=== PATIENT | female | born 1985 | race Caucasian/White ===

== ENCOUNTER 2016-09-16 12:39 | Outpatient (CLI) | payer MEDICAID | END 2016-09-16 12:40 | disposition home or self-care (01) | DX: R10.9 Unspecified abdominal pain (principal) ==

== ENCOUNTER 2016-09-17 16:01 | Emergency (ER) | payer MEDICAID ==
[2016-09-17 16:49] LABS: BILIRUBIN,URINE NEGATIVE (NEGATIVE)
[2016-09-17 16:54] LABS: HCG UR QUAL NEGATIVE; UA CHARGE (STRIP ONLY) YES; UR CULTURE IF IND NOT INDICATED
[2016-09-17] MEDS ORDERED: HYDROmorphone 1 MG/ML SYRINGE ONE ×2 (17:04→19:03)
[2016-09-17] MEDS: SODIUM CHLORIDE 0.9% 1,000 ML IV ONE (17:10)
[2016-09-17] MEDS: HYDROmorphone 1 MG/ML SYRINGE IVP STA ×2 (17:15→19:12)
[2016-09-17 17:29] LABS: BASOPHILS % (AUTO) 0.7 %; EOSINOPHILS % (AUTO) 0.5 %; HCT - HEMATOCRIT 39.7 % (37.0-47.0); HGB - HEMOGLOBIN 13.3 g/dL (12.0-16.0); LYMPHOCYTES # (AUTO) 1.6 10^3/uL (1.5-3.5); LYMPHOCYTES % (AUTO) 24.4 %; MEAN CORPUSCULAR HEMOGLOBIN 30.3 pg (27.0-31.0); MEAN CORPUSCULAR HGB CONC 33.4 g/dL (32.0-36.0); MEAN CORPUSCULAR VOLUME 90.5 fL (81.0-99.0); MONOCYTES # (AUTO) 0.4 10^3/uL (0.0-1.0); MONOCYTES % (AUTO) 6.1 %; NEUTROPHILS # (AUTO) 4.5 10^3/uL (1.5-6.6); NEUTROPHILS % (AUTO) 68.3 %; RED BLOOD COUNT 4.39 10^6/uL (4.20-5.40); RED CELL DISTRIBUTION WIDTH 12.7 % (12.0-15.0); UNCORRECTED WHITE BLOOD COUNT 6.5 x10^3/uL; WHITE BLOOD COUNT 6.5 x10^3/uL (4.8-10.8)
[2016-09-17 17:42] LABS: ALBUMIN/GLOBULIN RATIO 1.8 (1.0-2.2); BILIRUBIN,TOTAL 0.5 mg/dL (0.2-1.0); CALCIUM 9.8 mg/dL (8.5-10.3); CREATININE 0.6 mg/dL (0.4-1.0); POTASSIUM 3.5 mmol/L (3.5-5.0)
--- NOTE | 2016-09-17 17:47 | ED Physician Documentation ---
History of Present Illness - Stated complaint Stated Complaint: RT SIDE PX - Chief complaint Chief Complaint: Abd Pain - Additonal information Additional information: hx from pt 31 y/o f known gallstones inc rqu pain recently - more freq, more severe, longer duration some light stools and dark urine now severe and persistent pain after a milkshake no fever Review of Systems Constitutional: denies: Fever, Chills Cardiac: denies: Chest pain / pressure Respiratory: denies: Dyspnea, Cough GI: reports: Abdominal Pain. denies: Nausea, Vomiting, Diarrhea : reports: Hysterectomy Musculoskeletal: denies: Back pain Endocrine: denies: Easy bruising / bleeding Immunocompromised: denies: Immunocompromised PD PAST MEDICAL HISTORY - Past Medical History Respiratory: None NAVAL ENGINEER: Endometriosis HEENT: None - Past Surgical History Past Surgical History: Yes /NAVAL ENGINEER: Hysterectomy - Present Medications Home Medications: Ambulatory Orders Medication Instructions Recorded Confirmed Hydrocodone/Acetaminophen [[place] 1 each PO Q6H PRN #15 tablet 12/10/15 5-325 Tablet] metroNIDAZOLE [Flagyl] 250 mg PO TID #20 tablet 12/10/15 Amoxicillin 500 mg PO TID #20 capsule 02/02/16 Fluticasone [Flonase] 1 sprays SHEKHAR BID #1 bottle 02/02/16 Hydrocodone/Acetaminophen [[place] 1 each PO Q6H PRN #15 tablet 02/02/16 5-325 Tablet] Dicyclomine [Bentyl] 10 mg PO Q8H PRN #20 capsule 09/17/16 - Allergies Allergies/Adverse Reactions: Allergies Allergy/AdvReac Type Severity Reaction Status Date / Time Latex, Natural Rubber Allergy Unknown Verified 01/06/16 23:17 venom-honey bee Allergy Anaphylaxis Verified 01/06/16 23:17 [bee venom (honey bee)] - Social History Does the pt smoke?: No Smoking Status: Never smoker Does the pt drink ETOH?: No Does the pt have substance abuse?: No - Immunizations Immunizations are current?: Yes - POLST Patient has POLST: No PD ED PE NORMAL - Vitals Vital signs reviewed: Yes - General General: Alert and oriented X 3 - Cardiac Cardiac: RRR - Respiratory Respiratory: No respiratory distress, Clear bilaterally - Abdomen Abdomen: Soft, Other (TTP RUQ with + murphys) - Back Back: No CVA TTP - Derm Derm: Normal color - Neuro Neuro: Alert and oriented X 3 Results - Vitals Vitals: Vital Signs - 24 hr 09/17/16 09/17/16 09/17/16 16:20 18:22 19:13 Temperature 36.8 C 36.7 C Heart Rate 92 77 90 Respiratory 16 15 16 Rate Blood Pressure 126/80 101/64 121/83 H O2 Saturation 100 100 100 09/17/16 20:15 Temperature Heart Rate 68 Respiratory 17 Rate Blood Pressure 102/67 O2 Saturation 99 Oxygen O2 Source Room air - Labs Labs: Laboratory Tests 09/17/16 09/17/16 09/17/16 16:35 17:10 17:10 WBC 6.5 RBC 4.39 Hgb 13.3 Hct 39.7 MCV 90.5 MCH 30.3 MCHC 33.4 RDW 12.7 Plt Count 227 MPV 9.0 Neut # 4.5 Lymph # 1.6 [place] # 0.4 Eos # 0.0 Baso # 0.0 Absolute Nucleated RBC 0.00 Nucleated RBCs 0.0 Sodium 143 Potassium 3.5 Chloride 105 Carbon Dioxide 30 Anion Gap 8.0 BUN 9 Creatinine 0.6 Estimated GFR (MDRD) 118 Glucose 99 Calcium 9.8 Total Bilirubin 0.5 AST 36 ALT 38 Alkaline Phosphatase 55 Total Protein 8.0 Albumin 5.1 Globulin 2.9 Albumin/Globulin Ratio 1.8 Lipase 20 L Urine Color STRAW Urine Clarity CLEAR Urine pH 6.0 Ur Specific [place] <=1.005 Urine Protein NEGATIVE Urine Glucose (UA) NEGATIVE Urine Ketones NEGATIVE Urine Occult Blood NEGATIVE Urine Nitrite NEGATIVE Urine Bilirubin NEGATIVE Urine Urobilinogen 0.2 (NORMAL) Ur Leukocyte Esterase NEGATIVE Ur Microscopic Review NOT INDICATED Urine Culture Comments NOT INDICATED Urine HCG, Qual NEGATIVE - Rads (name of study) ruq sono Radiology: See rad report (no stones, nl GB, nl ducts) CT abd pelvis Radiology: See rad report (neg) PD MEDICAL DECISION MAKING - ED course ED course: nl labs neg ruq sono pain is worse will CT CT neg too will reassure and dc Departure - Departure Disposition: 01 Home, Self Care Clinical Impression: Abdominal pain Qualifiers: Abdominal location: right upper quadrant Qualified Code(s): R10.11 - Right upper quadrant pain Instructions: ED Abdominal Pain Unkn Cause Prescriptions: Dicyclomine [Bentyl] 10 mg PO Q8H PRN #20 capsule PRN Reason: stomach cramps Comments: All of the tests today came back fine. The urine showed no infection or blood to suggest a kidney stone The blood work including kidney liver and pancreas function was fine. The ultrasound did not show any gallstones The CT scan did not show any gallstones or kidney stones, no pancreatitis, no aneurysm, no bowel infection/perforation/obstruction, no internal bleeding or free fluid, normal size ovaries I am not sure what is causing the pain But given the extensive and reassuring workup, I do not think you need surgery or admission or antibiotics. I think it is safe for you to go home and to get any further work up as an outpatient It is very possible that over time, new or changing symptoms may develop that lead to a diagnosis not presently apparent. That is why close follow up with your PMD for a recheck is very important I would suggest you and your PMD consider a test called a HIDA scan to evaluate the gallbladder function - that test is not available tonight through the ER Recommend a low fat diet. You can try a medication called bentyl to ease the pains. I do not recommend any strong pain killers because I do not want to mask changing or worsening symptoms Forms: Activity restrictions
--- NOTE | 2016-09-17 18:34 | Ultrasound Preliminary Report ---
Exam: US Abdomen Limited IMPRESSION: Normal. No cholelithiasis or cholecystitis. [facility] SITE ID: [id number]
--- NOTE | 2016-09-17 18:36 | Ultrasound Report ---
EXAM: ABDOMEN ULTRASOUND LIMITED, RUQ EXAM DATE: 09/17/2016 05:47 PM. CLINICAL HISTORY: Severe constant ruq pain s/p milkshake. COMPARISON: Abdominal CT 01/07/2016. TECHNIQUE: Real-time scanning was performed with static images obtained. FINDINGS: Liver: Normal in size and echotexture. 17.3 cm. Main portal vein flow: Hepatopetal. Gallbladder: Partially distended. Patient was not fasting for exam. No stones, wall thickening, or so nographic Salgado's sign. Biliary System: CBD measures 4-5 mm. No intrahepatic or extrahepatic ductal dilatation. Other: Right kidney measured 10.6 cm longitudinally. No right hydronephrosis. IMPRESSION: Normal. No cholelithiasis or cholecystitis. [facility] Referring Provider Line: [phone] SITE ID: [id number]
[2016-09-17] MEDS: IOPAMIDOL-300 100 ML VIAL IVP ONE (19:38)
--- NOTE | 2016-09-17 19:55 | CT Preliminary Report ---
Exam: CT Abdomen/Pelvis W/ IMPRESSION: Negative contrast enhanced CT of the abdomen and pelvis. [facility] SITE ID: [id number]
--- NOTE | 2016-09-17 19:58 | CT Report ---
EXAM: CT ABDOMEN AND PELVIS EXAM DATE: 09/17/2016 07:38 PM. CLINICAL HISTORY: Severe right sided abd pain. COMPARISONS: 12/28/2015. TECHNIQUE: Routine helical CT imaging was performed through the abdomen and pelvis. IV contrast: 100 cc Omnipaque 300. Enteric contrast: No. Reconstructions: Coronal and sagittal. In accordance with CT protocol optimization, one or more of the following dose reduction techniques w ere utilized for this exam: automated exposure control, adjustment of mA and/or KV based on patient s ize, or use of iterative reconstructive technique. FINDINGS: Lung Bases: Unremarkable. Liver: Normal. No masses. Gallbladder/Bile Ducts: Unremarkable. Spleen: Normal. Pancreas: Normal. Adrenal Glands: Normal. Kidneys: Normal. No masses or hydronephrosis. Peritoneal Cavity/Bowel: Normal. No free fluid, free air or adenopathy. No masses or acute inflammato ry process. The appendix is well visualized and normal. Pelvic Organs: The uterus is surgically absent. No significant adnexal abnormalities are seen. Vasculature: No aneurysms or other significant abnormality. Bones: No significant abnormality. Other: None. IMPRESSION: Negative contrast enhanced CT of the abdomen and pelvis. [facility] Referring Provider Line: [phone] SITE ID: [id number]
[2016-09-17 20:16] VITALS: BP 102/67
[2016-09-17] MEDS ORDERED: oxyCOD/ACETAMIN 5 MG/325 MG TABLET PO ONE (20:26)
[2016-09-17] MEDS: oxyCOD/ACETAMIN 5 MG/325 MG TABLET PO STA (20:29)
== END 2016-09-17 20:35 | disposition home or self-care (01) ==
LOC: ED 16:01
DX: R10.11 Right upper quadrant pain (principal)
CPT/HCPCS: 36415; 74177; 76705; 80053; 81001; 81003; 81025; 83690; 85025; 87086; 96374; 96376; 99283; 99284

== ENCOUNTER 2017-01-05 13:21 | Emergency (ER) | payer MEDICAID ==
--- NOTE | 2017-01-05 13:39 | ED Physician Documentation ---
History of Present Illness - Stated complaint Stated Complaint: POST SURG. COMP - History obtained from History obtained from: Patient, Family - History of Present Illness Timing: Last night Pain level max: 8 Pain level now: 8 Improved by: nothing Worsened by: movement, palpation - Additonal information Additional information: Patient is a 31-year-old female who is status post laparoscopy at [facility] yesterday for endometriosis and lysis of adhesions. States went home last night and was unable to urinate, only urinated a small amount today. Increasing pain and pressure in the lower abdomen. 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 HEENT: None - Past Surgical History Past Surgical History: Yes /MACHINE PACKER: Hysterectomy - Present Medications Home Medications: Ambulatory Orders Medication Instructions Recorded Confirmed Hydrocodone/Acetaminophen [[place] 1 each PO Q6H PRN #15 tablet 12/10/15 5-325 Tablet] metroNIDAZOLE [Flagyl] 250 mg PO TID #20 tablet 12/10/15 Amoxicillin 500 mg PO TID #20 capsule 02/02/16 Fluticasone [Flonase] 1 sprays SHEKHAR BID #1 bottle 02/02/16 Hydrocodone/Acetaminophen [[place] 1 each PO Q6H PRN #15 tablet 02/02/16 5-325 Tablet] Dicyclomine [Bentyl] 10 mg PO Q8H PRN #20 capsule 09/17/16 Ondansetron Odt [Zofran] 4 mg TL Q6H PRN #10 tablet 01/05/17 Oxycodone HCl/Acetaminophen 1 - 2 each PO Q6H PRN #14 tablet 01/05/17 [Percocet 5-325 mg Tablet] - Allergies Allergies/Adverse Reactions: Allergies Allergy/AdvReac Type Severity Reaction Status Date / Time Latex, Natural Rubber Allergy Unknown Verified 01/06/16 23:17 venom-honey bee Allergy Anaphylaxis Verified 01/06/16 23:17 [bee venom (honey bee)] - Social History Does the pt smoke?: No Smoking Status: Never smoker Does the pt drink ETOH?: No Does the pt have substance abuse?: No - Immunizations Immunizations are current?: Yes - POLST Patient has POLST: No PD ED PE NORMAL - Vitals Vital signs reviewed: Yes - General General: Alert and oriented X 3, No acute distress, Well developed/nourished - HEENT HEENT: Moist mucous membranes - Neck Neck: Supple, no meningeal sign - Cardiac Cardiac: RRR - Respiratory Respiratory: No respiratory distress, Clear bilaterally - Abdomen Abdomen: Soft, Other (lower abd TTP. incisions are CDI) - Derm Derm: Warm and dry - Neuro Neuro: Alert and oriented X 3 - Psych Psych: Normal mood, Normal affect Results - Vitals Vitals: Vital Signs - 24 hr 01/05/17 01/05/17 13:26 14:44 Temperature 37.1 C 37.2 C Heart Rate 74 57 L Respiratory 18 18 Rate Blood Pressure 119/81 H 90/58 L O2 Saturation 99 100 Oxygen O2 Source Room air PD MEDICAL DECISION MAKING - ED course Complexity details: re-evaluated patient (Feels better after Dexter drainage), considered differential, d/w patient, d/w family ED course: Patient is a 31-year-old female who presents to the emergency department with acute urinary retention after surgery. Dexter catheter placed. Bladder drained. We will leave the catheter in place and have her follow-up with her doctor for further evaluation and care. Will prescribe Zofran for nausea for home and a small amount of pain medication for her. She is well-appearing, nontoxic. Afebrile. Patient counseled regarding signs and symptoms for which I believe and urgent re-evaluation would be necessary. Patient with good understanding of and agreement to plan and is comfortable going home at this time This document was made in part using voice recognition software. While efforts are made to proofread this document, sound alike and grammatical errors may occur. Departure - Departure Disposition: 01 Home, Self Care Clinical Impression: Acute urinary retention Condition: Good Instructions: ED Retention Urinary Female, ED Catheter Care Dexter Follow-Up: your,doctor tomorrow for catheter removal [Other] Prescriptions: Oxycodone HCl/Acetaminophen [Percocet 5-325 mg Tablet] 1 - 2 each PO Q6H PRN # 14 tablet PRN Reason: pain Ondansetron Odt [Zofran] 4 mg TL Q6H PRN #10 tablet PRN Reason: Nausea / Vomiting Comments: Return if you worsen. If you are unable to see your doctor, you can return here for the catheter removal. Do not drink alcohol or drive while on narcotic pain medicine. Note that many narcotic pain relievers also contain tylenol/acetaminophen. Please ensure that your total dose of acetaminophen from all sources does not exceed 3 grams (3000mg) per day. You may constipated on this medication, take a stool softener such as "Colace" twice a day while you are on it. Also recommend a cvku-vhu-kvpujsj laxative such as senna or MiraLAX any day that you do not have a bowel movement. If you received narcotic pain medication in the emergency department, do not drive or operate machinery for the next 24 hours. Discharge Date/Time: 01/05/17 15:13
[2017-01-05] MEDS ORDERED: oxyCOD/ACETAMIN 5 MG/325 MG TABLET PO STA (13:56)
[2017-01-05] MEDS ORDERED: oxyCOD/ACETAMIN 5 MG/325 MG TABLET PO ONE (14:05)
[2017-01-05 14:44] VITALS: BP 90/58
== END 2017-01-05 15:13 | disposition home or self-care (01) ==
LOC: ED 13:21
DX: R33.9 Retention of urine, unspecified (principal); N80.9 Endometriosis, unspecified; Z90.710 Acquired absence of both cervix and uterus
CPT/HCPCS: 51702; 99283

== ENCOUNTER 2017-01-05 23:08 | Emergency (ER) | payer MEDICAID ==
[2017-01-05] MEDS ORDERED: HYDROmorphone 1 MG/ML SYRINGE IM STA (23:24)
[2017-01-05] MEDS ORDERED: HYDROmorphone 1 MG/ML SYRINGE ONE (23:34)
[2017-01-05] MEDS ORDERED: SODIUM CHLORIDE FLUSH 0.9% 10 ML SYRINGE IVP ONE (23:34)
--- NOTE | 2017-01-06 00:11 | ED Physician Documentation ---
History of Present Illness - Stated complaint Stated Complaint: UNALBE TO URINATE/ABD PX - Chief complaint Chief Complaint: Abd Pain - History obtained from History obtained from: Patient, Family - History of Present Illness Timing: Today Pain level max: 10 Pain level now: 10 - Treatment prior to arrival Treatment prior to arrival: Patient is a 31-year-old female who had a lysis of adhesions surgery performed yesterday at [facility]. Seen here earlier today for inability to void. A Renner catheter was placed and she went home with the catheter in place. Her and her decided to remove the catheter at home tonight after deflating the balloon. She has returned tonight because she is still unable to void. Also states has continued abdominal pain. No fevers. No vomiting. Has not taken her pain medication for the last 4 hours. 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 HEENT: None - Past Surgical History Past Surgical History: Yes /CLINIC OFFICE COORDINATOR: Hysterectomy - Present Medications Home Medications: Ambulatory Orders Medication Instructions Recorded Confirmed Hydrocodone/Acetaminophen [[place] 1 each PO Q6H PRN #15 tablet 12/10/15 5-325 Tablet] metroNIDAZOLE [Flagyl] 250 mg PO TID #20 tablet 12/10/15 Amoxicillin 500 mg PO TID #20 capsule 02/02/16 Fluticasone [Flonase] 1 sprays SHEKHAR BID #1 bottle 02/02/16 Hydrocodone/Acetaminophen [[place] 1 each PO Q6H PRN #15 tablet 02/02/16 5-325 Tablet] Dicyclomine [Bentyl] 10 mg PO Q8H PRN #20 capsule 09/17/16 Ondansetron Odt [Zofran] 4 mg TL Q6H PRN #10 tablet 01/05/17 Oxycodone HCl/Acetaminophen 1 - 2 each PO Q6H PRN #14 tablet 01/05/17 [Percocet 5-325 mg Tablet] Tamsulosin [Flomax] 0.4 mg PO DAILY #3 capsule 01/06/17 - Allergies Allergies/Adverse Reactions: Allergies Allergy/AdvReac Type Severity Reaction Status Date / Time Latex, Natural Rubber Allergy Unknown Verified 01/06/16 23:17 venom-honey bee Allergy Anaphylaxis Verified 01/06/16 23:17 [bee venom (honey bee)] - Social History Does the pt smoke?: No Smoking Status: Never smoker Does the pt drink ETOH?: No Does the pt have substance abuse?: No - Immunizations Immunizations are current?: Yes - POLST Patient has POLST: No PD ED PE NORMAL - Vitals Vital signs reviewed: Yes - General General: Alert and oriented X 3, No acute distress - HEENT HEENT: Moist mucous membranes - Neck Neck: Supple, no meningeal sign - Cardiac Cardiac: RRR, Strong equal pulses - Respiratory Respiratory: No respiratory distress, Clear bilaterally - Abdomen Abdomen: Soft, Other (Mild tenderness palpation across the lower abdomen. Incisions are clean, dry, intact without signs of infection.) - Back Back: No CVA TTP, No spinal TTP - Derm Derm: Warm and dry - Neuro Neuro: Alert and oriented X 3 - Psych Psych: Normal mood, Normal affect Results - Vitals Vitals: Vital Signs - 24 hr 01/05/17 01/06/17 01/06/17 23:15 01:24 02:46 Temperature 36.6 C Heart Rate 74 62 69 Respiratory 16 18 16 Rate Blood Pressure 114/72 117/78 111/64 O2 Saturation 100 100 100 Oxygen O2 Source Room air PD MEDICAL DECISION MAKING - ED course Complexity details: reviewed old records, re-evaluated patient, considered differential, d/w patient, d/w family ED course: Patient is a 31-year-old female who presents for urinary retention. We did allow her to attempt another voiding trial in the emergency department, but she was unable to void, Flomax is then given and a Renner catheter was reinserted. She was also given a dose of Dilaudid to help with her pain control. She had been on oxycodone prior to the surgery and does not have an increased dose after surgery. No fevers. No evidence of peritonitis. The pain initially was on the right side of the abdomen, the left side of the abdomen. Incisions are clean dry and intact without signs of infection. She is very well-appearing, nontoxic. Afebrile. Counseled to please leave the catheter in place this time and follow-up with her doctor for removal. A silicone catheter was used as she is allergic to latex. Patient and family counseled regarding signs and symptoms for which I believe and urgent re-evaluation would be necessary. Patient with good understanding of and agreement to plan and is comfortable going home at this time This document was made in part using voice recognition software. While efforts are made to proofread this document, sound alike and grammatical errors may occur. Departure - Departure Disposition: 01 Home, Self Care Clinical Impression: Acute urinary retention Condition: Good Instructions: ED Catheter Care Renner, ED Retention Urinary Female Follow-Up: your,doctor in 2 days for renner removal [Other] Prescriptions: Tamsulosin [Flomax] 0.4 mg PO DAILY #3 capsule Comments: leave the catheter in place for the next 2 days, then follow up with your doctor for removal. Do not take the catheter out at home. Discharge Date/Time: 01/06/17 02:55
[2017-01-06] MEDS ORDERED: TAMSULOSIN 0.4 MG CAPSULE PO STA (00:51)
[2017-01-06] MEDS ORDERED: TAMSULOSIN 0.4 MG CAPSULE ONE (00:56)
[2017-01-06] MEDS ORDERED: oxyCOD/ACETAMIN 5 MG/325 MG TABLET PO STA (01:23)
[2017-01-06] MEDS ORDERED: oxyCOD/ACETAMIN 5 MG/325 MG TABLET PO ONE (01:29)
[2017-01-06 02:47] VITALS: BP 111/64
== END 2017-01-06 02:55 | disposition home or self-care (01) ==
LOC: ED 23:08
DX: R33.8 Other retention of urine (principal); T81.89XA Other complications of procedures, not elsewhere classified, initial encounter; Z90.710 Acquired absence of both cervix and uterus; N80.9 Endometriosis, unspecified
CPT/HCPCS: 51702; 51798; 96372; 99283; 99284; A9270; J1170

== ENCOUNTER 2017-03-03 08:00 | Outpatient (CLI) | payer MEDICAID | END 2017-03-03 08:01 | disposition home or self-care (01) | LOC: LAB.F 08:00 | PROVIDERS: ATTEND Internal Medicine | DX: R19.7 Diarrhea, unspecified (principal) | CPT/HCPCS: 83630 ==

== ENCOUNTER 2017-03-07 18:30 | Outpatient (CLI) | payer MEDICAID ==
[2017-03-09 12:11] LABS: TEST RESULT REPORT
== END 2017-03-07 23:59 | disposition home or self-care (01) ==
LOC: LAB.F 18:30
PROVIDERS: ATTEND Internal Medicine
DX: R19.7 Diarrhea, unspecified (principal)
CPT/HCPCS: 81599; 87177; 87209; 87329

== ENCOUNTER 2017-08-05 11:41 | Emergency (ER) | payer MEDICAID ==
[2017-08-05 11:49] VITALS: BP 125/85
[2017-08-05] MEDS ORDERED: DEXAMETHASONE 10 MG/ML VIAL PO STA (13:09)
--- NOTE | 2017-08-05 13:11 | ED Physician Documentation ---
PD HPI HEENT - Stated complaint Stated Complaint: SINUS PX - Chief complaint Chief Complaint: Heent - History obtained from History obtained from: Patient - History of Present Illness Timing - onset: How many weeks ago (2) Timing - duration: Weeks (2) Timing - details: Gradual onset, Still present Location: Sinuses Improves: Medication Associated symptoms: Congestion, Rhinorrhea, Facial swelling, Headache, Cough Similar symptoms before: Diagnosis (sinusitis) Recently seen: Clinic - Additional information Additional information: 32-year-old female with a history of seasonal allergic rhinitis is developed an infection in her sinuses. She has congestion sinus pain cough and production of yellow phlegm. She was seen in the clinic and placed on Augmentin which she did not tolerate she developed diarrhea with this and she was switched to Levaquin. She felt that helped some but as soon as she finished this she has as bad of symptoms that day. She does remember that previously here in the emergency department she has been treated for otitis with azithromycin and did well. Review of Systems Constitutional: denies: Fever Eyes: denies: Photophobia Ears: reports: Ear pain Nose: reports: Rhinorrhea / runny nose, Congestion, Sinus pressure / pain Throat: reports: Sore throat Cardiac: denies: Chest pain / pressure, Palpitations Respiratory: reports: Cough. 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 HEENT: None - Past Surgical History Past Surgical History: Yes /MATERIALS AND CORROSION ENGINEER: Hysterectomy - Present Medications Home Medications: Ambulatory Orders Medication Instructions Recorded Confirmed Azithromycin [Zithromax] 250 mg PO DAILY #6 tablet 08/05/17 Gabapentin 1,200 mg PO DAILY 08/05/17 08/05/17 HYDROcod/ACETAM 5/325 [[place] 5/325] 1 - 2 ea PO Q6H PRN #8 tablet 08/05/17 Loratadine [Claritin] 1 tab PO DAILY 08/05/17 08/05/17 - Allergies Allergies/Adverse Reactions: Allergies Allergy/AdvReac Type Severity Reaction Status Date / Time Latex, Natural Rubber Allergy Unknown Verified 08/05/17 11:58 venom-honey bee Allergy Anaphylaxis Verified 08/05/17 11:58 [bee venom (honey bee)] - Social History Does the pt smoke?: No Smoking Status: Never smoker Does the pt drink ETOH?: No Does the pt have substance abuse?: No - Immunizations Immunizations are current?: Yes - POLST Patient has POLST: No PD ED PE NORMAL - Vitals Vital signs reviewed: Yes (normal ) - General General: Alert and oriented X 3, No acute distress, Well developed/nourished - HEENT HEENT: Atraumatic, PERRL, EOMI, Ears normal, Pharynx benign, Dentition benign, Other (Theres is bilateral maxillary sinus point tenderness. ) - Neck Neck: Supple, no meningeal sign, No bony TTP - Cardiac Cardiac: RRR, No murmur - Respiratory Respiratory: No respiratory distress, Clear bilaterally - Abdomen Abdomen: Soft, Non tender - Back Back: No CVA TTP, No spinal TTP - Derm Derm: Normal color, Warm and dry, No rash - Extremities Extremities: No deformity, No edema - Neuro Neuro: Alert and oriented X 3, No motor deficit, No sensory deficit, Normal speech Eye Opening: Spontaneous Motor: Obeys Commands Verbal: Oriented GCS Score: 15 - Psych Psych: Normal mood, Normal affect Results - Vitals Vitals: Vital Signs - 24 hr 08/05/17 11:42 Temperature 36.4 C L Heart Rate 88 Respiratory 17 Rate Blood Pressure 125/85 H O2 Saturation 100 Oxygen O2 Source Room air PD MEDICAL DECISION MAKING - ED course Complexity details: considered differential, d/w patient ED course: 32-year-old female with a maxillary sinus infection that has not improved on a course of Levaquin is administered dexamethasone 10 mg orally here in the emergency department as a single dose. She would prefer not to use a course of prednisone for this. She is a history of improvement with azithromycin from otitis and we will switched to this antibiotic. She has picked up Nasacort and zyrtec I have encouraged her to continue to use these. Departure - Departure Disposition: 01 Home, Self Care Clinical Impression: Sinusitis Qualifiers: Sinusitis location: maxillary Chronicity: acute Recurrence: not specified as recurrent Qualified Code(s): J01.00 - Acute maxillary sinusitis, unspecified Condition: Stable Instructions: ED Sinusitis Abx Tx Follow-Up: Laurent Evans MD [Primary Care Provider] - Prescriptions: Azithromycin [Zithromax] 250 mg PO DAILY #6 tablet HYDROcod/ACETAM 5/325 [Sims 5/325] 1 - 2 ea PO Q6H PRN #8 tablet PRN Reason: Pain
== END 2017-08-05 13:15 | disposition home or self-care (01) ==
LOC: ED 11:41
DX: J01.00 Acute maxillary sinusitis, unspecified (principal)
CPT/HCPCS: 99283

== ENCOUNTER 2018-02-24 12:00 | Emergency (ER) | payer MEDICAID ==
--- NOTE | 2018-02-24 14:06 | ED Physician Documentation ---
PD HPI URI - Stated complaint Stated Complaint: SINUS PX/HEADACHE/EAR PX/UPPER JAW PX - Chief complaint Chief Complaint: Heent - History obtained from History obtained from: Patient - History of Present Illness Timing - onset: Yesterday (has had URI symptoms and congestion for a week, and now with maxillary sinus pressure and purulent nasal drainage since yesterday.) Timing duration: Days Timing details: Abrupt onset, Still present Associated symptoms: Nasal congestion, Sinus pain, Sore throat. 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: Endometriosis HEENT: None - Past Surgical History Past Surgical History: Yes /UMBRELLA FRAME MAKER: Hysterectomy - Present Medications Home Medications: Ambulatory Orders Medication Instructions Recorded Confirmed Azithromycin [Zithromax] 250 mg PO DAILY #6 tablet 08/05/17 Gabapentin 1,200 mg PO DAILY 08/05/17 08/05/17 HYDROcod/ACETAM 5/325 [[place] 5/325] 1 - 2 ea PO Q6H PRN #8 tablet 08/05/17 Loratadine [Claritin] 1 tab PO DAILY 08/05/17 08/05/17 Cephalexin [Keflex] 500 mg PO TID #20 capsule 02/24/18 Dexamethasone [Decadron] 4 mg PO DAILY #5 tablet 02/24/18 HYDROcod/ACETAM 5/325 [[place] 5/325] 1 tab PO Q6H PRN #12 tablet 02/24/18 - Allergies Allergies/Adverse Reactions: Allergies Allergy/AdvReac Type Severity Reaction Status Date / Time Latex, Natural Rubber Allergy Unknown Verified 08/05/17 11:58 venom-honey bee Allergy Anaphylaxis Verified 08/05/17 11:58 [bee venom (honey bee)] aspartame AdvReac Headache Verified 02/24/18 12:11 - Social History Does the pt smoke?: No Smoking Status: Never smoker Does the pt drink ETOH?: No Does the pt have substance abuse?: No - Immunizations Immunizations are current?: Yes - POLST Patient has POLST: No PD ED PE NORMAL - Vitals Vital signs reviewed: Yes - General General: Alert and oriented X 3, No acute distress, Well developed/nourished - HEENT HEENT: Ears normal, Moist mucous membranes, Pharynx benign, Other (left maxillary sinus tenderness to percussion) - Neck Neck: Supple, no meningeal sign, No adenopathy - Cardiac Cardiac: RRR, No murmur - Respiratory Respiratory: Clear bilaterally - Abdomen Abdomen: Soft, Non tender - Derm Derm: Normal color, Warm and dry - Neuro Neuro: Alert and oriented X 3, No motor deficit, Normal speech Results - Vitals Vitals: Vital Signs - 24 hr 02/24/18 12:08 Temperature 36.0 C L Heart Rate 87 Respiratory 20 Rate Blood Pressure 117/82 H O2 Saturation 100 Oxygen O2 Source Room air PD MEDICAL DECISION MAKING - ED course Complexity details: considered differential (sounds like sinus infection), d/w patient Departure - Departure Disposition: 01 Home, Self Care Clinical Impression: Sinusitis, acute Qualifiers: Sinusitis location: maxillary Recurrence: non-recurrent Qualified Code(s): J01.00 - Acute maxillary sinusitis, unspecified Condition: Stable Record reviewed to determine appropriate education?: Yes Instructions: ED Sinusitis Abx Tx Follow-Up: ARJUN PERKINS MD [Primary Care Provider] - Prescriptions: Cephalexin [Keflex] 500 mg PO TID #20 capsule Dexamethasone [Decadron] 4 mg PO DAILY #5 tablet HYDROcod/ACETAM 5/325 [[place] 5/325] 1 tab PO Q6H PRN #12 tablet PRN Reason: Pain Comments: Drink lots of fluids. Saline nose spray periodically through the day to help clear the nasal passage and promote sinus drainage. Cephalexin 3 times a day for a week for the sinus infection. Decadron steroid anti-inflammatory daily for 5 days to help with sinus inflammation. Continue your Doreen. Add Tylenol or hydrocodone if needed for pains. Recheck if not improved over the next several days to week. Discharge Date/Time: 02/24/18 14:45
[2018-02-24] MEDS ORDERED: cephALEXin 250 MG CAPSULE PO STA (14:22)
[2018-02-24] MEDS ORDERED: DEXAMETHASONE 10 MG/ML VIAL PO STA (14:22)
[2018-02-24 14:47] VITALS: BP 110/78
== END 2018-02-24 14:45 | disposition home or self-care (01) ==
LOC: ED 12:00
DX: J01.00 Acute maxillary sinusitis, unspecified (principal)
CPT/HCPCS: 99283; A9270

== ENCOUNTER 2018-08-01 18:46 | Emergency (ER) | payer MEDICAID | END 2018-08-01 19:07 | disposition left against medical advice (07) | LOC: ED 18:46 | DX: Z53.21 Procedure and treatment not carried out due to patient leaving prior to being seen by health care provider (principal) ==

== ENCOUNTER 2018-12-26 15:45 | Emergency (ER) | payer MEDICAID ==
[2018-12-26 15:52] VITALS: BP 117/79
[2018-12-26 16:06] LABS: BILIRUBIN,URINE NEGATIVE (NEGATIVE); GLUCOSE, URINE (UA) NEGATIVE (NEGATIVE); KETONES,URINE (UA) NEGATIVE (NEGATIVE); LEUKOCYTE ESTERASE, URINE SMALL (NEGATIVE); NITRITE,URINE POSITIVE (NEGATIVE); OCCULT BLOOD,URINE MODERATE (NEGATIVE); PROTEIN,URINE TRACE mg/dL (NEGATIVE); UROBILINOGEN,URINE 0.2 (NORMAL) E.U./dL (NORMAL)
[2018-12-26 16:09] LABS: CLARITY,URINE HAZY (CLEAR)
[2018-12-26] MEDS ORDERED: PHENAZOPYRIDINE 100 MG TABLET PO STA (16:12)
[2018-12-26] MEDS ORDERED: NITROFURANTOIN MACRO 100 MG CAPSULE PO STA (16:12)
[2018-12-26 16:15] LABS: BACTERIA,URINE Many /HPF (None Seen); SQUAMOUS EPITHELIAL CELL,UR MANY Squamous (<= Few)
--- NOTE | 2018-12-26 16:17 | ED Physician Documentation ---
PD HPI FEMALE - Stated complaint Stated Complaint: FEM - Chief complaint Chief Complaint: UTI - History obtained from History obtained from: Patient - History of Present Illness Timing - onset: Today Timing - duration: Days (1) Timing - details: Gradual onset Pain level max: 3 Pain level max: 3 Associated symptoms: Urinary frequency, Hematuria. 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 HEENT: None - Past Surgical History Past Surgical History: Yes /ONLINE SERVICES MANAGER: Hysterectomy - Present Medications Home Medications: Ambulatory Orders Medication Instructions Recorded Confirmed Azithromycin [Zithromax] 250 mg PO DAILY #6 tablet 08/05/17 Gabapentin 1,200 mg PO DAILY 08/05/17 08/05/17 HYDROcod/ACETAM 5/325 [[place] 5/325] 1 - 2 ea PO Q6H PRN #8 tablet 08/05/17 Loratadine [Claritin] 1 tab PO DAILY 08/05/17 08/05/17 Cephalexin [Keflex] 500 mg PO TID #20 capsule 02/24/18 HYDROcod/ACETAM 5/325 [[place] 5/325] 1 tab PO Q6H PRN #12 tablet 02/24/18 dexAMETHasone [Decadron] 4 mg PO DAILY #5 tablet 02/24/18 Nitrofurantoin Monohyd/M-Cryst 100 mg PO BID #10 capsule 12/26/18 [Macrobid 100 mg Capsule] Phenazopyridine HCl [Pyridium] 200 mg PO TID PRN #6 tablet 12/26/18 - Allergies Allergies/Adverse Reactions: Allergies Allergy/AdvReac Type Severity Reaction Status Date / Time Latex, Natural Rubber Allergy Unknown Verified 12/26/18 15:52 venom-honey bee Allergy Anaphylaxis Verified 12/26/18 15:52 [bee venom (honey bee)] aspartame AdvReac Headache Verified 12/26/18 15:52 - Social History Does the pt smoke?: No Smoking Status: Never smoker Does the pt drink ETOH?: No Does the pt have substance abuse?: No - Immunizations Immunizations are current?: Yes - POLST Patient has POLST: No PD ED PE NORMAL - Vitals Vital signs reviewed: Yes - General General: Alert and oriented X 3, No acute distress, Well developed/nourished - HEENT HEENT: Moist mucous membranes - Respiratory Respiratory: No respiratory distress - Abdomen Abdomen: Soft, Non tender, Non distended - Back Back: No CVA TTP - Derm Derm: Warm and dry - Neuro Neuro: Alert and oriented X 3 - Psych Psych: Normal mood, Normal affect Results - Vitals Vitals: Vital Signs - 24 hr 12/26/18 15:49 Temperature 37.1 C Heart Rate 104 H Respiratory 16 Rate Blood Pressure 117/79 O2 Saturation 99 Oxygen O2 Source Room air - Labs Labs: Laboratory Tests 12/26/18 16:00 Urine Color YELLOW Urine Clarity HAZY Urine pH 6.0 Ur Specific [place] <=1.005 Urine Protein TRACE Urine Glucose (UA) NEGATIVE Urine Ketones NEGATIVE Urine Occult Blood MODERATE H Urine Nitrite POSITIVE H Urine Bilirubin NEGATIVE Urine Urobilinogen 0.2 (NORMAL) Ur Leukocyte Esterase SMALL H Urine RBC 11-25 H Urine WBC 11-25 H Ur Squamous Epith Cells MANY Squamous H Urine Bacteria Many H Ur Microscopic Review INDICATED Urine Culture Comments NOT INDICATED PD MEDICAL DECISION MAKING - ED course Complexity details: reviewed results, considered differential, d/w patient ED course: 33-year-old female with a UTI. Will place on antibiotics and follow-up with her doctor. She is well-appearing, nontoxic. Afebrile. Patient counseled regarding signs and symptoms for which I believe and urgent re-evaluation would be necessary. Patient with good understanding of and agreement to plan and is comfortable going home at this time This document was made in part using voice recognition software. While efforts are made to proofread this document, sound alike and grammatical errors may occur. Departure - Departure Disposition: 01 Home, Self Care Clinical Impression: Urinary tract infection Qualifiers: Urinary tract infection type: acute cystitis Hematuria presence: without hematuria Qualified Code(s): N30.00 - Acute cystitis without hematuria Condition: Good Instructions: ED UTI Cystitis Female Follow-Up: ARJUN PERKINS MD [Primary Care Provider] - As Needed Prescriptions: Nitrofurantoin Monohyd/M-Cryst [Macrobid 100 mg Capsule] 100 mg PO BID #10 capsule Phenazopyridine HCl [Pyridium] 200 mg PO TID PRN #6 tablet PRN Reason: dysuria Comments: Take all antibiotics until gone. Return if you worsen. Discharge Date/Time: 12/26/18 16:26
== END 2018-12-26 16:26 | disposition home or self-care (01) ==
LOC: ED 15:45
DX: N30.01 Acute cystitis with hematuria (principal)
CPT/HCPCS: 81001; 99283; 99284; A9270; 81003; 87086

== ENCOUNTER 2019-01-12 14:45 | Emergency (ER) | payer MEDICAID ==
[2019-01-12 14:55] VITALS: BP 115/77
--- NOTE | 2019-01-12 15:00 | ED Physician Documentation ---
PD HPI SKIN - Stated complaint Stated Complaint: BUMPS ON SCALP - Chief complaint Chief Complaint: Wound - History obtained from History obtained from: Patient - History of Present Illness Timing - onset: How many months ago (1) Timing - duration: Months (1) Timing - details: Gradual onset, Still present Location: Scalp (She had a sore on the top of her scalp that did break open and had some drainage. She is seen at an urgent care and given prescription for clindamycin and also an antifungal cream topically and ketoconazole shampoo. The thought was tinea capitis. She states that seem to improve while on the antibiotics but the sore did not completely go away. She has been off antibiotics now about a week and a half in the drainage has resumed a greenish purulent material and she has a second spot adjacent to that is swollen and tender.), Other (had 2 small sores on abd that had improved with meds) Quality / character: Painful, Raised, Draining Associated symptoms: No: Fever, Myalgias, N/V/D Contributing factors: Other (history of MRSA infections in the past) Recently seen: Clinic Review of Systems Constitutional: denies: Fever, Chills, Myalgias Nose: denies: Rhinorrhea / runny nose, Congestion Throat: denies: Sore throat Respiratory: denies: Cough GI: denies: Nausea, Vomiting, Diarrhea Skin: reports: Lesions PD PAST MEDICAL HISTORY - Past Medical History Respiratory: None 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 HEENT: None - Past Surgical History Past Surgical History: Yes /CULINARY INSTRUCTOR: Hysterectomy - Present Medications Home Medications: Ambulatory Orders Medication Instructions Recorded Confirmed Azithromycin [Zithromax] 250 mg PO DAILY #6 tablet 08/05/17 Gabapentin 1,200 mg PO DAILY 08/05/17 08/05/17 HYDROcod/ACETAM 5/325 [[place] 5/325] 1 - 2 ea PO Q6H PRN #8 tablet 08/05/17 Loratadine [Claritin] 1 tab PO DAILY 08/05/17 08/05/17 Cephalexin [Keflex] 500 mg PO TID #20 capsule 02/24/18 HYDROcod/ACETAM 5/325 [[place] 5/325] 1 tab PO Q6H PRN #12 tablet 02/24/18 dexAMETHasone [Decadron] 4 mg PO DAILY #5 tablet 02/24/18 Nitrofurantoin Monohyd/M-Cryst 100 mg PO BID #10 capsule 12/26/18 [Macrobid 100 mg Capsule] Phenazopyridine HCl [Pyridium] 200 mg PO TID PRN #6 tablet 12/26/18 Doxycycline Hyclate 100 mg PO BID #20 capsule 01/12/19 Ketoconazole 10 ml TP DAILY #1 bottle 01/12/19 Mupirocin 1 applic TP TID #15 g 01/12/19 - Allergies Allergies/Adverse Reactions: Allergies Allergy/AdvReac Type Severity Reaction Status Date / Time Latex, Natural Rubber Allergy Unknown Verified 01/12/19 14:54 venom-honey bee Allergy Anaphylaxis Verified 01/12/19 14:54 [bee venom (honey bee)] aspartame AdvReac Headache Verified 01/12/19 14:54 - Social History Does the pt smoke?: No Smoking Status: Never smoker Does the pt drink ETOH?: No Does the pt have substance abuse?: No - Immunizations Immunizations are current?: Yes - POLST Patient has POLST: No PD ED PE NORMAL - Vitals Vital signs reviewed: Yes - General General: Alert and oriented X 3, No acute distress, Well developed/nourished - HEENT HEENT: Pharynx benign - Neck Neck: Supple, no meningeal sign, No adenopathy - Cardiac Cardiac: RRR, No murmur - Respiratory Respiratory: Clear bilaterally - Derm Derm: Normal color, Warm and dry, Other (The scalp shows 2 localized areas of inflammation with swelling and slight drainage. There is no fluctuance noted. Both areas are about 1 to 1-1/2 cm diameter. There is some drainage of slight greenish purulent material and this is cultured. There is minimal hair loss in the area and no hyperkeratotic skin.) - Neuro Neuro: Alert and oriented X 3, No motor deficit, Normal speech Results - Vitals Vitals: Vital Signs - 24 hr 01/12/19 14:51 Temperature 36.4 C L Heart Rate 99 Respiratory 16 Rate Blood Pressure 115/77 O2 Saturation 100 Oxygen O2 Source Room air PD MEDICAL DECISION MAKING - ED course Complexity details: considered differential (Seems likely to be staph infections that had partly cleared with clindamycin. We will try doxycycline instead. She already does chlorhexidine body wash and can do it in the scalp as well. She thought the antifungal shampoo may have helped and so we can renew that as well. Culture will result in a couple of days to help guide therapy.), d/w patient Departure - Departure Disposition: 01 Home, Self Care Clinical Impression: Scalp abscess Condition: Stable Record reviewed to determine appropriate education?: Yes Instructions: ED Staph Infec Abx Tx Only Follow-Up: ARJUN PERKINS MD [Primary Care Provider] - Prescriptions: Doxycycline Hyclate 100 mg PO BID #20 capsule Ketoconazole 10 ml TP DAILY #1 bottle Mupirocin 1 applic TP TID #15 g Comments: Continue chlorhexidine's scalp and body wash daily. Use some ketoconazole antifungal shampoo daily as well. Mupirocin ointment to the 2 small abscess areas twice daily. Doxycycline antibiotic twice daily for 10 days. Recheck if not improved well over the next several days to week. Follow-up with your primary care in about 7 to 10 days for recheck. The culture from today should result in about 2 days and will call if we need to change antibiotics.
[2019-01-12] MEDS ORDERED: MUPIROCIN 2% OINT 1 GM TOP STA (15:15)
[2019-01-12] MEDS ORDERED: DOXYCYCLINE 100 MG TABLET PO STA (15:15)
== END 2019-01-12 15:39 | disposition home or self-care (01) ==
LOC: ED 14:45
DX: L02.811 Cutaneous abscess of head [any part, except face] (principal)
CPT/HCPCS: 87070; 87181; 87205; 99283; 99284; A9270

== ENCOUNTER 2019-01-21 01:13 | Emergency (ER) | payer MEDICAID ==
--- NOTE | 2019-01-21 02:23 | ED Physician Documentation ---
PD HPI SKIN - Stated complaint Stated Complaint: SCALP INFECTION - Chief complaint Chief Complaint: Wound - History obtained from History obtained from: Patient - History of Present Illness Timing - onset: How many weeks ago (2) Timing - details: Gradual onset Location: Scalp Quality / character: Painful, Raised, Swelling, Draining Associated symptoms: No: Fever Recently seen: Emergency Dept - Additional information Additional information: T+R from this ED 01/12 for scalp cellulitis; at that time she had drainage that was cultured and this subsequently grew MRSA. She was prescribed doxycycline but returns c/o no improvement despite this antibiotic. She says she is still expressing pus from one of the two lesions Review of Systems Constitutional: denies: Fever, Chills, Sweats Skin: reports: Lesions PD PAST MEDICAL HISTORY - Past Medical History Past Medical History: Yes Respiratory: None ACTUARY: Endometriosis HEENT: None - Past Surgical History Past Surgical History: Yes /ACTUARY: Hysterectomy - Present Medications Home Medications: Ambulatory Orders Medication Instructions Recorded Confirmed Azithromycin [Zithromax] 250 mg PO DAILY #6 tablet 08/05/17 Gabapentin 1,200 mg PO DAILY 08/05/17 08/05/17 HYDROcod/ACETAM 5/325 [[place] 5/325] 1 - 2 ea PO Q6H PRN #8 tablet 08/05/17 Loratadine [Claritin] 1 tab PO DAILY 08/05/17 08/05/17 Cephalexin [Keflex] 500 mg PO TID #20 capsule 02/24/18 HYDROcod/ACETAM 5/325 [[place] 5/325] 1 tab PO Q6H PRN #12 tablet 02/24/18 dexAMETHasone [Decadron] 4 mg PO DAILY #5 tablet 02/24/18 Nitrofurantoin Monohyd/M-Cryst 100 mg PO BID #10 capsule 12/26/18 [Macrobid 100 mg Capsule] Phenazopyridine HCl [Pyridium] 200 mg PO TID PRN #6 tablet 12/26/18 Doxycycline Hyclate 100 mg PO BID #20 capsule 01/12/19 Ketoconazole 10 ml TP DAILY #1 bottle 01/12/19 Mupirocin 1 applic TP TID #15 g 01/12/19 Mupirocin 1 film TP BID #1 oint...g. 01/21/19 Sulfamethox/Trimeth 800/160 1 each PO BID #19 tablet 01/21/19 [Bactrim Ds 800/160] - Allergies Allergies/Adverse Reactions: Allergies Allergy/AdvReac Type Severity Reaction Status Date / Time Latex, Natural Rubber Allergy Unknown Verified 01/21/19 01:29 venom-honey bee Allergy Anaphylaxis Verified 01/21/19 01:29 [bee venom (honey bee)] aspartame AdvReac Headache Verified 01/21/19 01:29 - Social History Does the pt smoke?: No Smoking Status: Never smoker Does the pt drink ETOH?: No Does the pt have substance abuse?: No - Immunizations Immunizations are current?: Yes - POLST Patient has POLST: No PD ED PE NORMAL - Vitals Vital signs reviewed: Yes - General General: Alert and oriented X 3, No acute distress, Well developed/nourished PD ED PE EXPANDED - HEENT HEENT Visual: 1 - deformity (1.5 cm diameter scaly and hyperpigmented lesion without discharge or fluctuance; there is no significant tenderness. there is a small central scab and mild surrounding hair loss. there is trace erythema) 2 - deformity (1 cm diameter trace swelling with central trace ulceration. no fluctuance, no discharge, nontender. There is trace erythema) Results - Vitals Vitals: Vital Signs - 24 hr 01/21/19 01/21/19 01:16 02:43 Temperature 36.4 C L Heart Rate 108 H 86 Respiratory 18 18 Rate Blood Pressure 106/71 118/79 O2 Saturation 100 100 Oxygen O2 Source Room air PD MEDICAL DECISION MAKING - ED course Complexity details: reviewed old records, considered differential, d/w patient ED course: two scalp lesions that appear minimally infected but patient says she continues to express pus from the larger of the two lesions. Based on the recent ED culture, doxycycline would have been expected to have resulted in improvement, and based on notes from 01/12 ED visit, my findings on exam would suggest that there has been improvement (lesions at this time are dry and scabbing over, and previous visit's notes indicate active discharge). Patient says she has had similar lesions in the past that were also caused by MRSA and bactrim x 10 days has been the most effective treatment. Departure - Departure Disposition: 01 Home, Self Care Clinical Impression: Cellulitis of scalp Condition: Good Instructions: ED Infec Skin Cellulitis Follow-Up: ARJUN PERKINS MD [Primary Care Provider] - Prescriptions: Mupirocin 1 film TP BID #1 oint...g. Sulfamethox/Trimeth 800/160 [Bactrim Ds 800/160] 1 each PO BID #19 tablet Discharge Date/Time: 01/21/19 02:45
[2019-01-21] MEDS ORDERED: SULFAMETH/TRIMETH DS 800/160 MG TABLET PO STA (02:34)
[2019-01-21 02:44] VITALS: BP 118/79
== END 2019-01-21 02:45 | disposition home or self-care (01) ==
LOC: ED 01:13
DX: L03.811 Cellulitis of head [any part, except face] (principal); A49.02 Methicillin resistant Staphylococcus aureus infection, unspecified site
CPT/HCPCS: 99282; 99283; A9270

== ENCOUNTER 2019-07-11 05:05 | Outpatient (CLI) | payer MEDICAID ==
--- NOTE | 2019-07-11 11:06 | HISTORY & PHYSICAL EXAMINATION ---
HPI - Admitted From Admitted from: ED - History Obtained From Records Reviewed: Other History obtained from: Patient Exam limitations: No limitations - History of Present Illness Pain/Problem Location Description: RLQ pain Severity at the worst: reports: Severe Pain Quality: reports: Sharp Context-Pain started w/: reports: Other (post-coital) Timing: reports: Abrupt onset Duration: reports: Hours: (12 hours) Improved with: reports: Nothing Worsened by: reports: Palpation Associated symptoms: reports: Nausea HPI Comment/Other: 34 yo with hx of laparoscopic hysterectomy for endometriosis presents with RLQ pain concerning for torsion. Patient reports feeling constipated in general. Had intercourse last night and had to stop early due to some discomfort attributed to constipation. Pain became more severe within an hour of IC. Has had nausea; no vomiting. Hx of hysterectomy for endometriosis and ablation of endometriosis after that. Last meal at 10 pm last night. PMH/PSH - Past Medical History Cardiovascular: positive: None Respiratory: positive: None Neuro: positive: None Endocrine/Autoimmune: positive: None GI: positive: None DISTRIBUTION OPERATIONS SUPERVISOR: positive: Endometriosis HEENT: positive: None Psych: positive: None Musculoskeletal: positive: None Derm: positive: None MRSA Hx?: Yes - Past Surgical History /DISTRIBUTION OPERATIONS SUPERVISOR: positive: Hysterectomy Other past surgical history: Robotic hysterectomy. Laparoscopic ablation of endometriosis Social & Family Hx - Social History Does the pt smoke?: No Smoking Status: Never smoker Does the pt drink ETOH?: No Does the pt have substance abuse?: No - POLST Patient has POLST: No Meds/Allgy - Home Medications Home Medications: Ambulatory Orders Medication Instructions Recorded Confirmed Azithromycin [Zithromax] 250 mg PO DAILY #6 tablet 08/05/17 Gabapentin 1,200 mg PO DAILY 08/05/17 08/05/17 HYDROcod/ACETAM 5/325 [[place] 5/325] 1 - 2 ea PO Q6H PRN #8 tablet 08/05/17 Loratadine [Claritin] 1 tab PO DAILY 08/05/17 08/05/17 Cephalexin [Keflex] 500 mg PO TID #20 capsule 02/24/18 HYDROcod/ACETAM 5/325 [[place] 5/325] 1 tab PO Q6H PRN #12 tablet 02/24/18 dexAMETHasone [Decadron] 4 mg PO DAILY #5 tablet 02/24/18 Nitrofurantoin Monohyd/M-Cryst 100 mg PO BID #10 capsule 12/26/18 [Macrobid 100 mg Capsule] Phenazopyridine HCl [Pyridium] 200 mg PO TID PRN #6 tablet 12/26/18 Doxycycline Hyclate 100 mg PO BID #20 capsule 01/12/19 Ketoconazole 10 ml TP DAILY #1 bottle 01/12/19 Mupirocin 1 applic TP TID #15 g 01/12/19 Mupirocin 1 film TP BID #1 oint...g. 01/21/19 Sulfamethox/Trimeth 800/160 1 each PO BID #19 tablet 01/21/19 [Bactrim Ds 800/160] - Allergies Allergies/Adverse Reactions: Allergies Allergy/AdvReac Type Severity Reaction Status Date / Time Latex, Natural Rubber Allergy Unknown Verified 07/11/19 05:42 venom-honey bee Allergy Anaphylaxis Verified 07/11/19 05:42 [bee venom (honey bee)] aspartame AdvReac Headache Verified 07/11/19 05:42 Review of Systems - Other Findings Other Findings: As per HPI, remaining systems are negative. Exam - Physical Exam General Appearance: positive: No acute distress Eyes Bilateral: positive: Normal inspection Neck: positive: Nml inspection Respiratory: positive: No respiratory distress Cardiovascular: positive: Other (RR) Peripheral Pulses: positive: 1+ Abdomen: positive: Guarding, Other (Diffuse tenderness on right side with TTP in RLQ; guarding) Skin: positive: Color nml Extremities: positive: Non-tender Neurologic/Psychiatric: positive: Oriented x3 Comments/Other: Tender at vaginal introitus. Diffuse hard stool palpable through vaginal vault. No tenderness at left adnexa. Right adnexa bulbous and full and exquisitely tender to touch. Cervix and uterus surgically absent. Results - Other Other Results/Comments: See pelvic us. Right ovary asymmetrically enlarged and hyperechoic suggestive of torsion Impression/Plan - Problem List Problem List: 34 yo here with RLQ pain and imaging c/w ovarian torsion. -Recommend surgical intervention: laparoscopic de-torsion of ovary with possible cystectomy or oophorectomy. -reviewed possible conversion to open Reviewed risks/benefits/alternatives; including risks of bleeding, infection, and damage to nearby tissue and organs. Consented to transfusion Written informed consent for lsc oophorectomy, possible de-torsion and cystectomy, and conversion to open obtained. Had ceftriaxone this am for likely UTI; prophylactic antibiotics not indicated for this procedure.\ Proceed to OR.
== END 2019-07-11 05:06 | disposition critical access hospital (66) ==
LOC: EMS 05:05
PROVIDERS: ATTEND Surgery
DX: R10.31 Right lower quadrant pain (principal)
CPT/HCPCS: A0425; A0427

== ENCOUNTER 2019-07-11 05:32 | Day surgery (SDC) | payer MEDICAID ==
[2019-07-11] MEDS ORDERED: HYDROmorphone 1 MG/ML CARPUJECT IM STA (05:37)
[2019-07-11] MEDS ORDERED: SODIUM CHLORIDE 0.9% 1,000 ML IV ONE ×2 (05:37→10:30)
[2019-07-11] MEDS ORDERED: ONDANSETRON 4 MG/2 ML VIAL IVP STA (05:38)
--- NOTE | 2019-07-11 05:43 | ED Physician Documentation ---
PD HPI ABD PAIN - Stated complaint Stated Complaint: ABD PAIN - Chief complaint Chief Complaint: Abd Pain - History obtained from History obtained from: Patient, EMS - History of Present Illness Timing - onset: Last night Timing - duration: Hours Timing - details: Gradual onset, Still present, Constant Quality: Sharp Radiation: Right flank Improved by: Other (NOTHING) Worsened by: Other (NOTHING) Associated symptoms: No: Fever, Nausea, Vomiting, Hematemesis, Diarrhea, Constipation Similar symptoms before: Has not had sx before - Additional information Additional information: 34 YEAR OLD FEMALE PRESENTS TO THE EMERGENCY DEPARTMENT WITH A GRADUAL ONSET OF RIGHT LOWER QUADRANT ABDOMINAL PAIN SINCE LAST NIGHT AT 11 PM. SHE REPORTED WORSENING PAIN WHILE SHE WAS LAYING IN BED. SHE DENIES NAUSEA, VOMITING, FEVER, DIARRHEA, RECENT TRAUMA, VAGINAL BLEEDING. SHE HAS HX OF ENDOMETRIOSIS AND HAD A HYSTERECTOMY SEVERAL YEARS AGAIN. SHE DENIES VAGINAL DISCHARGE. HER PAIN WAS SHARP AND IT RADIATES TO HER RIGHT FLANK. SHE WAS GIVEN F[place]L EN ROUTE TO THE EMERGENCY DEPARTMENT WITH IMPROVEMENT OF PAIN. Review of Systems Constitutional: denies: Fever, Chills Ears: denies: Loss of hearing, Ear pain Cardiac: denies: Chest pain / pressure GI: reports: Abdominal Pain. denies: Abdominal Swelling, Nausea, Vomiting, Constipation, Diarrhea : denies: Dysuria Skin: denies: Rash Musculoskeletal: denies: Neck pain, Back pain, Extremity pain, Joint pain Neurologic: denies: Generalized weakness, Focal weakness, Numbness, Difficulty speaking PD PAST MEDICAL HISTORY - Past Medical History Cardiovascular: None Respiratory: None Neuro: None Endocrine/Autoimmune: None GI: None CORRECTIONAL THERAPY DIRECTOR: Endometriosis HEENT: None Psych: None Musculoskeletal: None Derm: None - Past Surgical History Past Surgical History: Yes /CORRECTIONAL THERAPY DIRECTOR: Hysterectomy - Present Medications Home Medications: Ambulatory Orders Medication Instructions Recorded Confirmed Azithromycin [Zithromax] 250 mg PO DAILY #6 tablet 08/05/17 Gabapentin 1,200 mg PO DAILY 08/05/17 08/05/17 HYDROcod/ACETAM 5/325 [[place] 5/325] 1 - 2 ea PO Q6H PRN #8 tablet 08/05/17 Loratadine [Claritin] 1 tab PO DAILY 08/05/17 08/05/17 Cephalexin [Keflex] 500 mg PO TID #20 capsule 02/24/18 HYDROcod/ACETAM 5/325 [[place] 5/325] 1 tab PO Q6H PRN #12 tablet 02/24/18 dexAMETHasone [Decadron] 4 mg PO DAILY #5 tablet 02/24/18 Nitrofurantoin Monohyd/M-Cryst 100 mg PO BID #10 capsule 12/26/18 [Macrobid 100 mg Capsule] Phenazopyridine HCl [Pyridium] 200 mg PO TID PRN #6 tablet 12/26/18 Doxycycline Hyclate 100 mg PO BID #20 capsule 01/12/19 Ketoconazole 10 ml TP DAILY #1 bottle 01/12/19 Mupirocin 1 applic TP TID #15 g 01/12/19 Mupirocin 1 film TP BID #1 oint...g. 01/21/19 Sulfamethox/Trimeth 800/160 1 each PO BID #19 tablet 01/21/19 [Bactrim Ds 800/160] - Allergies Allergies/Adverse Reactions: Allergies Allergy/AdvReac Type Severity Reaction Status Date / Time Latex, Natural Rubber Allergy Unknown Verified 07/11/19 05:42 venom-honey bee Allergy Anaphylaxis Verified 07/11/19 05:42 [bee venom (honey bee)] aspartame AdvReac Headache Verified 07/11/19 05:42 - Social History Does the pt smoke?: No Smoking Status: Never smoker Does the pt drink ETOH?: No Does the pt have substance abuse?: No - Immunizations Immunizations are current?: Yes - POLST Patient has POLST: No PD ED PE NORMAL - General General: Alert and oriented X 3, Well developed/nourished, Other (MOANING IN PAIN) - HEENT HEENT: Atraumatic - Neck Neck: Supple, no meningeal sign - Cardiac Cardiac: Other (reuglar rate and rhythm) - Respiratory Respiratory: No respiratory distress - Abdomen Abdomen: Normal bowel sounds, Other (RIGHT LOWER QUADRANT TENDERNSS WITH REBOUND) - Back Back: No CVA TTP - Derm Derm: Normal color, Warm and dry - Extremities Extremities: No deformity - Neuro Neuro: Alert and oriented X 3 Eye Opening: Spontaneous Motor: Obeys Commands - Psych Psych: Normal mood Results - Vitals Vitals: Vital Signs - 24 hr 07/11/19 07/11/19 07/11/19 05:35 08:00 10:00 Temperature 36.8 C Heart Rate 69 104 H 76 Respiratory 20 19 17 Rate Blood Pressure 115/86 H 101/71 107/84 H O2 Saturation 100 100 99 07/11/19 07/11/19 07/11/19 10:44 13:20 13:25 Temperature 36.5 C Heart Rate 62 56 L Respiratory 16 16 Rate Blood Pressure 111/75 105/73 105/73 O2 Saturation 100 100 07/11/19 07/11/19 07/11/19 13:30 13:35 13:40 Temperature 36.5 C 36.5 C 36.4 C L Heart Rate 55 L 54 L 57 L Respiratory 16 16 16 Rate Blood Pressure 104/70 104/75 102/69 O2 Saturation 100 100 100 07/11/19 07/11/19 07/11/19 13:45 13:50 13:55 Temperature 36.2 C L 36.4 C L 36.4 C L Heart Rate 57 L 57 L 59 L Respiratory 16 16 16 Rate Blood Pressure 102/74 109/77 113/75 O2 Saturation 100 100 100 07/11/19 07/11/19 07/11/19 14:00 14:05 14:23 Temperature 36.5 C 36.5 C 36.7 C Heart Rate 56 L 57 L 108 H Respiratory 16 16 14 Rate Blood Pressure 116/81 H 110/83 H 109/79 O2 Saturation 100 100 95 07/11/19 07/11/19 07/11/19 14:51 15:20 16:10 Temperature 37.3 C Heart Rate 101 H 72 74 Respiratory 16 18 14 Rate Blood Pressure 113/73 118/66 103/72 O2 Saturation 100 99 100 07/11/19 16:45 Temperature Heart Rate 67 Respiratory 14 Rate Blood Pressure 107/75 O2 Saturation 98 Oxygen O2 Source Room air - Labs Labs: Laboratory Tests 07/11/19 07/11/19 07/11/19 05:45 05:45 06:10 WBC 7.9 RBC 3.71 L Hgb 10.8 L Hct 33.5 L MCV 90.3 MCH 29.1 MCHC 32.2 RDW 12.3 Plt Count 230 MPV 9.1 Neut # (Auto) 6.3 Lymph # (Auto) 1.1 L [place] # (Auto) 0.3 Eos # (Auto) 0.0 Baso # (Auto) 0.0 Absolute Nucleated RBC 0.00 Nucleated RBC % 0.0 Sodium Potassium Chloride Carbon Dioxide Anion Gap BUN Creatinine Estimated GFR (MDRD) Glucose Calcium Total Bilirubin AST ALT Alkaline Phosphatase Total Protein Albumin Globulin Albumin/Globulin Ratio Lipase Serum HCG, Qual Urine Color YELLOW Urine Clarity HAZY Urine pH 7.5 Ur Specific [place] 1.020 Urine Protein NEGATIVE Urine Glucose (UA) NEGATIVE Urine Ketones NEGATIVE Urine Occult Blood NEGATIVE Urine Nitrite POSITIVE H Urine Bilirubin NEGATIVE Urine Urobilinogen 0.2 (NORMAL) Ur Leukocyte Esterase SMALL H Urine RBC 0-5 Urine WBC 11-25 H Ur Squamous Epith Cells FEW Squamous Urine Bacteria Moderate H Urine Mucus Few Strands Ur Microscopic Review INDICATED Urine Culture Comments INDICATED Nasal Screen MRSA (PCR) Urine Opiates Screen NEGATIVE Ur Oxycodone Screen NEGATIVE Urine Methadone Screen POSITIVE H Ur Propoxyphene Screen NEGATIVE Ur Barbiturates Screen NEGATIVE Ur Tricyclics Screen NEGATIVE Ur Phencyclidine Scrn NEGATIVE Ur Amphetamine Screen POSITIVE H U Methamphetamines Scrn NEGATIVE U Benzodiazepines Scrn NEGATIVE Urine Cocaine Screen NEGATIVE U Cannabinoids Screen NEGATIVE Blood Type Blood Type Recheck Antibody Screen 07/11/19 07/11/19 07/11/19 06:10 06:10 06:10 WBC RBC Hgb Hct MCV MCH MCHC RDW Plt Count MPV Neut # (Auto) Lymph # (Auto) [place] # (Auto) Eos # (Auto) Baso # (Auto) Absolute Nucleated RBC Nucleated RBC % Sodium 140 Potassium 3.8 Chloride 104 Carbon Dioxide 27 Anion Gap 9.0 BUN 11 Creatinine 0.6 Estimated GFR (MDRD) 116 Glucose 123 H Calcium 8.6 Total Bilirubin 0.5 AST 29 ALT 26 Alkaline Phosphatase 61 Total Protein 6.5 L Albumin 3.7 Globulin 2.8 Albumin/Globulin Ratio 1.3 Lipase 20 L Serum HCG, Qual NEGATIVE Urine Color Urine Clarity Urine pH Ur Specific [place] Urine Protein Urine Glucose (UA) Urine Ketones Urine Occult Blood Urine Nitrite Urine Bilirubin Urine Urobilinogen Ur Leukocyte Esterase Urine RBC Urine WBC Ur Squamous Epith Cells Urine Bacteria Urine Mucus Ur Microscopic Review Urine Culture Comments Nasal Screen MRSA (PCR) Urine Opiates Screen Ur Oxycodone Screen Urine Methadone Screen Ur Propoxyphene Screen Ur Barbiturates Screen Ur Tricyclics Screen Ur Phencyclidine Scrn Ur Amphetamine Screen U Methamphetamines Scrn U Benzodiazepines Scrn Urine Cocaine Screen U Cannabinoids Screen Blood Type Blood Type Recheck O NEGATIVE Antibody Screen 07/11/19 07/11/19 11:15 14:06 WBC RBC Hgb Hct MCV MCH MCHC RDW Plt Count MPV Neut # (Auto) Lymph # (Auto) [place] # (Auto) Eos # (Auto) Baso # (Auto) Absolute Nucleated RBC Nucleated RBC % Sodium Potassium Chloride Carbon Dioxide Anion Gap BUN Creatinine Estimated GFR (MDRD) Glucose Calcium Total Bilirubin AST ALT Alkaline Phosphatase Total Protein Albumin Globulin Albumin/Globulin Ratio Lipase Serum HCG, Qual Urine Color Urine Clarity Urine pH Ur Specific [place] Urine Protein Urine Glucose (UA) Urine Ketones Urine Occult Blood Urine Nitrite Urine Bilirubin Urine Urobilinogen Ur Leukocyte Esterase Urine RBC Urine WBC Ur Squamous Epith Cells Urine Bacteria Urine Mucus Ur Microscopic Review Urine Culture Comments Nasal Screen MRSA (PCR) POSITIVE A* Urine Opiates Screen Ur Oxycodone Screen Urine Methadone Screen Ur Propoxyphene Screen Ur Barbiturates Screen Ur Tricyclics Screen Ur Phencyclidine Scrn Ur Amphetamine Screen U Methamphetamines Scrn U Benzodiazepines Scrn Urine Cocaine Screen U Cannabinoids Screen Blood Type O NEGATIVE Blood Type Recheck Antibody Screen NEGATIVE PD MEDICAL DECISION MAKING - ED course Complexity details: reviewed results, re-evaluated patient, d/w patient, d/w family, d/w senior environmental consultant ED course: 34 YEAR OLD FEMALE PRESENTED TO THE EMERGENCY DEPEARTMENT BECAUSE OF RIGHT LOWER QUADRANT ABDOMINAL PAIN SINCE 2300 LAST NIGHT WITH NAUSEA. PATIENT RADIATED TO THE RIGHT FLANK. WBC WAS NORMAL. CT SCAN OF THE ABDOMEN/ PELVIS WITH IV CONTRAST SHOWED ASYMMETRIC RIGHT OVARY WHEN COMPARED TO LEFT. STOOLS THROUGHOUT THE COLON, HYSTERECTOMY. APPENDIX WAS NOT SEEN. PELVIC US SHOWED ARTERIAL AND VENOUS FLOW TO BOTH OVARIES WITH ASYMMETRIC OVARIES (RIGHT GREATER THAN LEFT). PATIENT WAS ALSO FOUND TO HAVE AN UTI AND WAS GIVEN IV ROCEPHIN. SHE WAS INITIALLY GIVEN DILAUDID WITH SOME RELIEF OF PAIN BUT PAIN STARTED COMING BACK. SHE WAS GIVEN HALDOL, BENADRYL AND TORADOL WITH IMPROVEMENT OF PAIN. CASE WAS DISCUSSED WITH [facility] CONTROL SPECIALIST, DR. MCNEIL, WHO WILL COME DOWN AND EVALUATE THE PATIENT. CASE WAS SIGNED OUT TO DR. HERNANDEZ, ED PHYSICIAN WHO WILL RESUME CARE AT THIS TIME. DISPOSITION IS PENDING ON RYAN/CORRECTIONAL THERAPY DIRECTOR'S ASSESSEMENT AND RECOMMENDATION. Departure - Departure Disposition: ED Transfer to [facility] Clinical Impression: Pelvic pain, Abnormal ultrasound of ovary UTI (urinary tract infection) Qualifiers: Urinary tract infection type: site unspecified Hematuria presence: without hematuria Qualified Code(s): N39.0 - Urinary tract infection, site not specified Condition: Stable Discharge Date/Time: 07/11/19 11:22
[2019-07-11] MEDS ORDERED: HYDROmorphone 1 MG/ML CARPUJECT IVP STA ×2 (05:50→10:30)
[2019-07-11 05:51] LABS: BILIRUBIN,URINE NEGATIVE (NEGATIVE); GLUCOSE, URINE (UA) NEGATIVE (NEGATIVE); KETONES,URINE (UA) NEGATIVE (NEGATIVE); LEUKOCYTE ESTERASE, URINE SMALL (NEGATIVE); NITRITE,URINE POSITIVE (NEGATIVE); OCCULT BLOOD,URINE NEGATIVE (NEGATIVE); PH,URINE 7.5 PH (5.0-7.5); PROTEIN,URINE NEGATIVE (NEGATIVE); UROBILINOGEN,URINE 0.2 (NORMAL) E.U./dL (NORMAL)
[2019-07-11] MEDS ORDERED: IOVERSOL 320 100 ML VIAL IVP ONE ×2 (05:52→06:56)
[2019-07-11 05:59] LABS: BACTERIA,URINE Moderate /HPF (None Seen); CLARITY,URINE HAZY (CLEAR); MUCUS,URINE Few Strands; RBC,URINE 0-5 /HPF (0-5); SQUAMOUS EPITHELIAL CELL,UR FEW Squamous (<= Few)
[2019-07-11] MEDS ORDERED: cefTRIAXone 2 GM in SODIUM CHLORIDE 0.9% MINIBAG 100 ML IV STA (06:02)
[2019-07-11 06:18] LABS: BASOPHILS % (AUTO) 0.5 %; EOSINOPHILS % (AUTO) 0.4 %; HGB - HEMOGLOBIN 10.8 g/dL (12.0-16.0); LYMPHOCYTES # (AUTO) 1.1 10^3/uL (1.5-3.5); LYMPHOCYTES % (AUTO) 13.6 %; MEAN CORPUSCULAR HEMOGLOBIN 29.1 pg (27.0-31.0); MEAN CORPUSCULAR HGB CONC 32.2 g/dL (32.0-36.0); MEAN CORPUSCULAR VOLUME 90.3 fL (81.0-99.0); MEAN PLATELET VOLUME 9.1 fL (7.9-10.8); MONOCYTES # (AUTO) 0.3 10^3/uL (0.0-1.0); MONOCYTES % (AUTO) 4.3 %; NEUTROPHILS # (AUTO) 6.3 10^3/uL (1.5-6.6); NEUTROPHILS % (AUTO) 80.8 %; PLT - PLATELET COUNT 230 10^3/uL (130-450); RED BLOOD COUNT 3.71 10^6/uL (4.20-5.40); RED CELL DISTRIBUTION WIDTH 12.3 % (12.0-15.0); WHITE BLOOD COUNT 7.9 x10^3/uL (4.8-10.8)
[2019-07-11 06:31] LABS: ALBUMIN 3.7 g/dL (3.2-5.5); ALBUMIN/GLOBULIN RATIO 1.3 (1.0-2.2); BILIRUBIN,TOTAL 0.5 mg/dL (0.2-1.0); CALCIUM 8.6 mg/dL (8.5-10.3); CREATININE 0.6 mg/dL (0.4-1.0); TOTAL PROTEIN 6.5 g/dL (6.7-8.2)
[2019-07-11] MEDS ORDERED: KETOROLAC 30 MG/ML VIAL IVP STA (06:55)
[2019-07-11] MEDS ORDERED: HALOPERIDOL 5 MG/ML VIAL IVP ONE (06:56)
[2019-07-11] MEDS ORDERED: diphenhydrAMINE INJ 50 MG/ML VIAL IVP STA (06:57)
--- NOTE | 2019-07-11 07:41 | CT Report ---
Reason: RIGHT LOWER QUADRANT ABDOMINAL PAIN, Procedure Date: 07/11/2019 Accession Number: [id number] / [id number] Procedure: CT - Abdomen/Pelvis W CPT Code: Final Report FULL RESULT: EXAM: CT ABDOMEN AND PELVIS EXAM DATE: 07/11/2019 07:01 AM. CLINICAL HISTORY: RIGHT LOWER QUADRANT ABDOMINAL PAIN. COMPARISONS: ABDOMEN/PELVIS W/ 09/17/2016 7:25 PM. TECHNIQUE: Routine helical CT imaging was performed through the abdomen and pelvis. IV contrast: 80 mL Optiray 320. Enteric contrast: No. Reconstructions: Coronal and sagittal. In accordance with CT protocol optimization, one or more of the following dose reduction techniques were utilized for this exam: automated exposure control, adjustment of mA and/or KV based on patient size, or use of iterative reconstructive technique. FINDINGS: Lung Bases: Unremarkable. Liver: Normal. No masses. Gallbladder/Bile Ducts: Unremarkable. Spleen: Normal. Pancreas: Normal. Adrenal Glands: Normal. Kidneys: Normal. No masses or hydronephrosis. Peritoneal Cavity/Bowel: Large amount of gas and stool in the rectum. Large amount of gas and stool in the colon. Mild distention of the colon and rectum. Some small bowel feces in the distal ileum with mild distention. Appendix not seen. Pelvic Organs: Hysterectomy. Right ovary is asymmetrically larger than the left ovary, series 3, axial image 76, with ovary measuring 5.0 cm, with possible trace adjacent free fluid, series 3, axial image 75, with the ovary located low and anterior in the right pelvis and containing multiple peripheral follicles Vasculature: No aneurysms or other significant abnormality. Bones: No significant abnormality. Other: None. IMPRESSION: 1. Right ovary is asymmetrically larger than the left ovary containing multiple peripheral follicles and possible trace adjacent fluid, located anteroinferior in the pelvis. Consider ultrasound to evaluate to ensure findings are not related to torsion. Polycystic ovarian syndrome is another consideration in the appropriate clinical setting. 2. Large amount of gas and stool throughout the colon and rectum with mild distention of the colon and rectum and distal small bowel. Correlate for constipation RADIA
[2019-07-11 08:26] LABS: HCG,QUALITATIVE BLOOD NEGATIVE
[2019-07-11 08:43] LABS: MUDS CUTOFF CONCENTRATIONS CUTOFF CONC BELOW:
[2019-07-11 08:55] LABS: AMPHETAMINE SCREEN,URINE POSITIVE (NEGATIVE); BENZODIAZEPINES SCREEN, URINE NEGATIVE (NEGATIVE); COCAINE SCREEN URINE NEGATIVE (NEGATIVE); METHADONE SCREEN, URINE POSITIVE (NEGATIVE); METHAMPHETAMINES SCREEN, URINE NEGATIVE (NEGATIVE); OPIATE SCREEN, URINE NEGATIVE (NEGATIVE); OXYCODONE SCREEN, URINE NEGATIVE (NEGATIVE); PROPOXYPHENE SCREEN, URINE NEGATIVE (NEGATIVE); TRICYCLIC ANTIDEPRESSANT,URINE NEGATIVE (NEGATIVE)
--- NOTE | 2019-07-11 09:19 | Ultrasound Report ---
Reason: right pelvic pain, evaluate for torsion Procedure Date: 07/11/2019 Accession Number: [id number] / [id number] Procedure: US - Pelvic w/Doppler Complete CPT Code: Final Report FULL RESULT: EXAM: PELVIC ULTRASOUND WITH DOPPLERS CLINICAL HISTORY: Right pelvic pain, evaluate for torsion. COMPARISON: ABDOMEN/PELVIS W/ 07/11/2019 6:49 AM ABDOMEN/PELVIS W09/17/2016 7:25 PM TECHNIQUE: Realtime transabdominal imaging performed to identify the uterus and adnexa and as an overview of other pelvic structures, with static image documentation. Color flow imaging and Doppler spectral analysis was performed to evaluate blood flow to the ovaries given pelvic pain and clinical concern for ovarian torsion. FINDINGS: Uterus: Hysterectomy Right Ovary: 4.7 x 4.3 x 3.4 cm, volume 36.0 cc. Mildly hyperechoic. Arterial and venous blood flow are present. PSV 9.0 cm/sec. RI 0.7. Asymmetrically larger. Adnexa are unremarkable. Left Ovary: 4.0 x 2.4 x 2.7 cm, volume 13.6 cc. Arterial and venous blood flow are present. PSV 10.3 cm/sec. RI 0.6. Adnexa are unremarkable. Free Fluid: None. Other: None. IMPRESSION: Asymmetrically larger right ovary located anteroinferior in the right hemipelvis does demonstrate arterial and venous Doppler waveforms however degree of asymmetric enlargement and mildly hyperechoic appearance and the fact that the ovary was normal in size on CT dated 09/17/2016 raises the possibility of torsion, possibly intermittent torsion. Recommend GAS WELDING EQUIPMENT MECHANIC evaluation and correlation with point tenderness (ovary is just beneath the pelvic wall in the extreme inferior aspect of the pelvic cavity). RADIA
[2019-07-11] MEDS ORDERED: LACTATED RINGERS 1,000 ML IV STA (10:34)
[2019-07-11] MEDS ORDERED: BUPIVACAINE 0.25% PF 30 ML VIAL ONE (11:04)
[2019-07-11] MEDS ORDERED: LIDOCAINE 1%-EPI 1:100000 20 ML MDV ONE (11:05)
[2019-07-11] MEDS ORDERED: ceFAZolin 2 GM in SODIUM CHLORIDE 0.9% 100ML 100 ML IV STA (11:10)
--- NOTE | 2019-07-11 11:23 | ANESTHESIA ---
Pre-Anesthesia VS, & Labs - Diagnosis ovary torsed - Procedure ovarian torsion correction Vital Signs: Temp Pulse Resp BP Pulse Ox 36.8 C 62 16 111/75 100 07/11/19 05:35 07/11/19 10:44 07/11/19 10:44 07/11/19 10:44 07/11/19 10:44 Height 5 ft 4 in Weight (kg) 58.967 kg Body Mass Index 22.3 - NPO >8 hours - Is Patient ?: No - Lab Results Current Lab Results: Laboratory Tests 07/11/19 06:10: Serum HCG, Qual NEGATIVE 07/11/19 06:10: Sodium 140, Potassium 3.8, Chloride 104, Carbon Dioxide 27, Anion Gap 9.0, BUN 11, Creatinine 0.6, Estimated GFR (MDRD) 116, Glucose 123 H, Calcium 8.6, Total Bilirubin 0.5, AST 29, ALT 26, Alkaline Phosphatase 61, Total Protein 6.5 L, Albumin 3.7, Globulin 2.8, Albumin/Globulin Ratio 1.3, Lipase 20 L 07/11/19 06:10: WBC 7.9, RBC 3.71 L, Hgb 10.8 L, Hct 33.5 L, MCV 90.3, MCH 29.1, MCHC 32.2, RDW 12.3, Plt Count 230, MPV 9.1, Neut # (Auto) 6.3, Lymph # (Auto) 1.1 L, [place] # (Auto) 0.3, Eos # (Auto) 0.0, Baso # (Auto) 0.0, Absolute Nucleated RBC 0.00, Nucleated RBC % 0.0 07/11/19 05:45: Urine Opiates Screen NEGATIVE, Ur Oxycodone Screen NEGATIVE, Urine Methadone Screen POSITIVE H, Ur Propoxyphene Screen NEGATIVE, Ur Barbiturates Screen NEGATIVE, Ur Tricyclics Screen NEGATIVE, Ur Phencyclidine Scrn NEGATIVE, Ur Amphetamine Screen POSITIVE H, U Methamphetamines Scrn NEGATIVE, U Benzodiazepines Scrn NEGATIVE, Urine Cocaine Screen NEGATIVE, U Cannabinoids Screen NEGATIVE Lab results reviewed: Yes Fish Bones: 07/11/19 06:10 07/11/19 06:10 Home Medications and Allergies Active Medications Sodium Chloride (Normal Saline 0.9%) 1,000 mls @ 500 mls/hr IV .Q2H ONE Stop: 07/11/19 12:29 Last Admin: 07/11/19 10:57 Dose: Not Given Lactated Ringer's (Lr) 1,000 mls @ 1,000 mls/hr IV .Q1H STA Stop: 07/11/19 11:33 Last Admin: 07/11/19 10:45 Dose: 1,000 mls/hr Cefazolin Sodium 2 gm/ Sodium (Chloride) 100 mls @ 200 mls/hr IV ONCE STA Stop: 07/11/19 11:39 Gabapentin 1,200 mg PO DAILY 08/05/17 Loratadine [Claritin] 1 tab PO DAILY 08/05/17 Allergies/Adverse Reactions: Allergies Allergy/AdvReac Type Severity Reaction Status Date / Time Latex, Natural Rubber Allergy Unknown Verified 07/11/19 05:42 venom-honey bee Allergy Anaphylaxis Verified 07/11/19 05:42 [bee venom (honey bee)] aspartame AdvReac Headache Verified 07/11/19 05:42 Anes History & Medical History - Anesthetic History Anesthesia Complications: reports: No previous complications Family history of Anesthesia Complications: Denies Family history of Malignant Hyperthermia: Denies - Medical History Cardiovascular: reports: None Pulmonary: reports: None Gastrointestinal: reports: None Neuro: reports: None Musculoskeletal: reports: None Endocrine/Autoimmune: reports: None Blood Disorders: reports: Polycythemia vera Skin: reports: None Smoking Status: Current every day smoker Psychosocial: reports: Amphetamine, Methadone - Surgical History Gynecologic: Hysterectomy Exam General: Alert, Oriented x3, Cooperative, Mild distress Dental: WNL Mouth Openin Fingerbreadth Neck Mobility: Normal Mallampati classification: I Thyromental Distance: 4-6 cm Respiratory: Lungs clear, Normal breath sounds, No respiratory distress Cardiovascular: Regular rate Neurological: Normal speech Mental/Cognitive Status: Alert/Oriented X3, Normal for patient Plan Anesthesia Type: General Consent for Procedure(s) Verified and Reviewed: Yes Code Status: Attempt Resuscitation ASA classification: 2-Mild systemic disease Is this case an emergency?: Yes
[2019-07-11] MEDS ORDERED: MIDAZOLAM 2 MG/2 ML VIAL IVP ONE (11:24)
[2019-07-11] MEDS ORDERED: ONDANSETRON 4 MG/2 ML VIAL IVP ONE (11:24)
[2019-07-11] MEDS ORDERED: SUCCINYLCHOLINE 200 MG/10 ML VIAL IVP ONE (11:24)
[2019-07-11] MEDS ORDERED: ePHEDrine 50 MG/ML VIAL IVP ONE (11:24)
[2019-07-11] MEDS ORDERED: fentaNYL 250 MCG/5 ML VIAL IVP ONE (11:24)
[2019-07-11] MEDS ORDERED: LIDOCAINE-MPF 2% 5 ML VIAL IM ONE (11:24)
[2019-07-11] MEDS ORDERED: GLYCOPYRROLATE 1 MG/5 ML VIAL IVP ONE (11:24)
[2019-07-11] MEDS ORDERED: ROCURONIUM 50 MG/5 ML VIAL IVP ONE (11:24)
[2019-07-11] MEDS ORDERED: KETOROLAC 30 MG/ML VIAL IVP ONE (11:24)
[2019-07-11] MEDS ORDERED: PROPOFOL 200 MG/20 ML VIAL IVP ONE (11:24)
[2019-07-11] MEDS ORDERED: NEOSTIGMINE 1 MG/1 ML 10 ML MDV IVP ONE (11:24)
[2019-07-11] MEDS ORDERED: LIDOCAINE 1%-EPI 1:100000 20 ML MDV SUBQ ONE (12:01)
[2019-07-11] MEDS ORDERED: BUPIVACAINE 0.25% PF 30 ML VIAL SUBQ ONE (12:02)
[2019-07-11] MEDS ORDERED: LACTATED RINGERS 1,000 ML IV ONE (12:04)
[2019-07-11] MEDS ORDERED: oxyCODONE 5 MG TABLET PO PRN (13:28)
--- NOTE | 2019-07-11 13:32 | OPERATIVE REPORT ---
Operative Report - General Procedure Date: 07/11/19 Planned Procedure: Laparoscopic de-torsion of ovary, possible cystectomy vs oophorectomy Pre-Op Diagnosis: Suspected ovarian torsion Procedure Performed: Laparoscopic oophorectomy Post Op Diagnosis: Same and torsed, necrotic ovary - Procedure Note Primary Surgeon: Kate Fairchild MD Secondary Surgeon: Enrico Orozco MD Anesthesia Provider: Bryant Arcos CRNA Anesthesia Technique: General ET tube Pathology: Right ovary, morcellated IV Fluids (mL): 1,100 Estimated Blood Loss (mL): 5 Urine Output (mL): 270 (prior to procedure) Indications: 34 yo with severe, acute onset RLQ pain with ultrasound findings suspicious for torsion Findings: Uterus and cervix surgically absent. Enlarged, dusky, engorged right ovary. Remained dark and ducky after de-torsion. Tissue fully necrotic and friable upon attempted removal from pelvis/abdomen. Normal appearing left ovary, appendix, gall bladder and liver edge. Small implant of white endometriosis overlying right ureter. No other endometriotic implants. Complications: None - Other Other Information/Narrative: Risks benefits and alternatives of the procedure were reviewed. Consent was again confirmed. Patient was brought to the operating room and underwent general anesthesia. She was placed in dorsal lithotomy position with legs resting in yellowfin stirrups. SCDs were in place and activated. Patient had receivd ceftriaxone in ER for presumed UTI. Further antibiotic prophylaxis was not indicated. She was prepped and draped in the usual sterile fashion. Surgical timeout was performed. Bimanual exam was performed. Sponge stick was placed in the vaginal vault. The base of the umbilicus was anesthetized with intradermal injection of 0.25% Marcaine. A 5 mm skin incision was made with a scalpel. A 5 mm blunt trocar was inserted under direct visualization using Visiport. Once the port was confirmed to be placed intraperitoneally, the abdomen was insufflated to 15 mmHg with CO2 gas Exploration of the abdomen and pelvis was confirmed that no injury was sustained with placement of the trocar. Two additional 5 mm ports were placed in the right and left lower quadrants, taking care to avoid the epigastric arteries, while under direct visualization via laparoscopic guidance. The abdomen was explored with the laparoscope, with findings as noted. The right ovary was elevated and detorsed. No return of color was noted under direct visualization following the de-torsion. Ovary was deemed non-viable and decision was made to proceed with oophorectomy. The right ureter was observed to peristalses well below the infundibulopelvic ligament. The IP ligament was then sealed and ligated with the Ligasure device. The left lateral port was removed and replaced with a 12 mm port. An Endocatch device was inserted through the port and the ovary was placed in the port without difficulty. The Endocatch bag was brought through the port site, with the trocar removed. The ovary was manually morcellated within the bag and removed from the pelvis through the port site. No ovarian tissue or fluid was spilled into the abdomen or pelvis. The area was irrigated and the pedicle was noted to be hemostatic. The left lateral port site was closed with 0-Vicryl using the Nico Solano fascial closure device. The completion of closure was noted with direct visualization of the process with the laparoscope. Good hemostasis was noted. The abdomen was partially desufflated. Pedicle was observed under decreased pressure and good hemostasis was again confirmed. All instruments were removed from the abdomen. Skin was closed with interrupted subcuticular stitches using 4-0 Monocryl. Dermabond was applied over the suture sites. The final sponge needle and instrument counts were correct at completion of the procedure patient was awakened taken to the postanesthesia care unit in stable condition.
[2019-07-11] MEDS ORDERED: oxyCODONE 5 MG TABLET ONE (14:39)
[2019-07-11 18:16] VITALS: BP 99/68
== END 2019-07-11 10:31 | disposition home or self-care (01) ==
LOC: EDUNIT# → ED 05:32 → SDS 10:30
PROVIDERS: ATTEND Obstetrics & Gynecology
PROC: 0UT04ZZ Resection of Right Ovary, Percutaneous Endoscopic Approach (ICD-10-PCS; principal; 2019-07-11 11:00)
DX: N83.511 Torsion of right ovary and ovarian pedicle (principal); K59.00 Constipation, unspecified; F17.290 Nicotine dependence, other tobacco product, uncomplicated; Z72.89 Other problems related to lifestyle
CPT/HCPCS: 36415; 58661; 74177; 76856; 80053; 80306; 81001; 83690; 84703; 85025; 86850; 86900; 86901; 87086; 87181; 87640; 93975; 96365; 96375; 99284; 99285; A9270; J0330; J1170; J1200; J3010; J7120; Q9967; 81003

== ENCOUNTER 2019-07-26 08:00 | Outpatient (CLI) | payer MEDICAID | END 2019-07-26 23:59 | disposition home or self-care (01) | LOC: LAB.R 08:00 | PROVIDERS: ATTEND Obstetrics & Gynecology | DX: A49.02 Methicillin resistant Staphylococcus aureus infection, unspecified site (principal) | CPT/HCPCS: 87640 ==

== ENCOUNTER 2020-01-07 23:09 | Emergency (ER) | payer MEDICAID ==
[2020-01-07 23:23] VITALS: BP 117/81
--- NOTE | 2020-01-07 23:23 | ED Physician Documentation ---
History of Present Illness - Stated complaint Stated Complaint: FACE SWELLING - History obtained from History obtained from: Patient - History of Present Illness Timing: Enter time (11:00), Today Pain level now: 6 Improved by: benadryl Worsened by: no apparent exacerbating factors - Additonal information Additional information: c/o facial swelling since 11 AM today. She took benadryl with some improvement. Denies h/o similar symptoms and no apparent inciting factors such as new medication. She also c/o ongoing scalp infection which has been treated in the past with PO antibiotics but persists with some hair loss as a result. 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: Endometriosis HEENT: None Psych: None Musculoskeletal: None Derm: None - Past Surgical History Past Surgical History: Yes /FOOD SERVICE DRIVER: Hysterectomy - Present Medications Home Medications: Ambulatory Orders Medication Instructions Recorded Confirmed Loratadine [Claritin] 1 tab PO DAILY 08/05/17 08/05/17 Clindamycin [Cleocin] 150 mg PO Q6H 10/27/19 10/27/19 Hydrocodone/Acetaminophen 1 - 2 each PO Q6H PRN #10 tablet 10/27/19 [Hydrocodon-Acetaminophen 5-325] Magnesium Citrate 296 ml PO ONCE PRN #1 solution 10/27/19 Doxycycline Hyclate 100 mg PO BID #20 capsule 01/08/20 Mupirocin Calcium [Mupirocin] 1 film TP TID #1 cream..g. 01/08/20 predniSONE [Prednisone] 40 mg PO DAILY 3 Days #6 tablet 01/08/20 - Allergies Allergies/Adverse Reactions: Allergies Allergy/AdvReac Type Severity Reaction Status Date / Time Latex, Natural Rubber Allergy Unknown Verified 10/27/19 08:59 sulfamethoxazole Allergy Rash Verified 01/07/20 23:24 [From Sulfamethoxazole-Trimethoprim] trimethoprim Allergy Rash Verified 01/07/20 23:24 [From Sulfamethoxazole-Trimethoprim] venom-honey bee Allergy Anaphylaxis Verified 10/27/19 08:59 [bee venom (honey bee)] aspartame AdvReac Headache Verified 10/27/19 08:59 - Social History Does the pt smoke?: No Smoking Status: Never smoker Does the pt drink ETOH?: No Does the pt have substance abuse?: No - Immunizations Immunizations are current?: Yes - POLST Patient has POLST: No PD ED PE NORMAL - Vitals Vital signs reviewed: Yes - General General: Alert and oriented X 3, No acute distress, Well developed/nourished - HEENT HEENT: PERRL, EOMI, Other (facial swelling, predominantly bilateral periorbital and forehead and nasal bridge; no erythema or abnormal warmth to touch; left pre/postauricular lymphadenopathy) - Neck Neck: Supple, no meningeal sign PD ED PE EXPANDED - Derm Derm: Rash (pustular maculopapular exanthem with scaly, dry skin on scalp (left of midline, parietal scalp, with surrounding hair loss). no fluctuance or discharge) Results - Vitals Vitals: Vital Signs - 24 hr 01/07/20 01/08/20 23:14 00:20 Temperature 37.0 C Heart Rate 104 H 98 Respiratory 18 16 Rate Blood Pressure 117/81 H O2 Saturation 98 99 Oxygen O2 Source Room air PD MEDICAL DECISION MAKING - ED course Complexity details: reviewed old records, considered differential, d/w patient Departure - Departure Disposition: 01 Home, Self Care Clinical Impression: Cellulitis of scalp, Facial swelling Condition: Good Instructions: ED Infec Skin Cellulitis Follow-Up: ARJUN PERKINS MD [Primary Care Provider] - Prescriptions: Doxycycline Hyclate 100 mg PO BID #20 capsule Mupirocin Calcium [Mupirocin] 1 film TP TID #1 cream..g. predniSONE [Prednisone] 40 mg PO DAILY 3 Days #6 tablet Discharge Date/Time: 01/08/20 00:20
[2020-01-08] MEDS ORDERED: predniSONE 20 MG TABLET PO STA (00:07)
[2020-01-08] MEDS ORDERED: DOXYCYCLINE 100 MG TABLET PO STA (00:07)
== END 2020-01-08 00:20 | disposition home or self-care (01) ==
LOC: ED 23:09
DX: L03.811 Cellulitis of head [any part, except face] (principal); R22.0 Localized swelling, mass and lump, head
CPT/HCPCS: 99283; 99284; A9270; J7512

== ENCOUNTER 2020-03-20 17:53 | Emergency (ER) | payer MEDICAID ==
--- NOTE | 2020-03-20 18:48 | ED Physician Documentation ---
History of Present Illness - Stated complaint Stated Complaint: HEAD PX/OOZE - Chief complaint Chief Complaint: Wound - History obtained from History obtained from: Patient - Additonal information Additional information: 35-year-old female presents the emergency department with with what she believes is a MRSA infection of her scalp. She reports that in the past antibiotics have helped make this better but over the last few weeks she has had a lot of scaling and itching of her scalp and now her hair is starting to fall out. She also reports that she is concerned she has a urinary tract infection. Reports 3 days of dysuria urgency and frequency. No fevers vomiting or abdominal pain. Denies possibility of Review of Systems Eyes: reports: Reviewed and negative Ears: reports: Reviewed and negative Nose: reports: Reviewed and negative Throat: reports: Reviewed and negative Cardiac: reports: Reviewed and negative Respiratory: reports: Reviewed and negative GI: reports: Reviewed and negative : reports: Dysuria, Frequency, Hesitancy Skin: reports: Rash Musculoskeletal: reports: Reviewed and negative Neurologic: reports: Reviewed and negative PD PAST MEDICAL HISTORY - Past Medical History Past Medical History: Yes Cardiovascular: None Respiratory: None Neuro: None Endocrine/Autoimmune: None GI: None 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 : None HEENT: None Psych: None Musculoskeletal: None Derm: None - Past Surgical History Past Surgical History: Yes /ELECTROLYSIS OPERATOR: Hysterectomy - Present Medications Home Medications: Ambulatory Orders Medication Instructions Recorded Confirmed Loratadine [Claritin] 1 tab PO DAILY 08/05/17 08/05/17 Clindamycin [Cleocin] 150 mg PO Q6H 10/27/19 10/27/19 Hydrocodone/Acetaminophen 1 - 2 each PO Q6H PRN #10 tablet 10/27/19 [Hydrocodon-Acetaminophen 5-325] Magnesium Citrate 296 ml PO ONCE PRN #1 solution 10/27/19 Doxycycline Hyclate 100 mg PO BID #20 capsule 01/08/20 Mupirocin Calcium [Mupirocin] 1 film TP TID #1 cream..g. 01/08/20 predniSONE [Prednisone] 40 mg PO DAILY 3 Days #6 tablet 01/08/20 Cephalexin [Keflex] 500 mg PO BID #14 capsule 03/20/20 Griseofulvin, Microsize 500 mg PO DAILY #30 tablet 03/20/20 [Griseofulvin] - Allergies Allergies/Adverse Reactions: Allergies Allergy/AdvReac Type Severity Reaction Status Date / Time Latex, Natural Rubber Allergy Unknown Verified 10/27/19 08:59 sulfamethoxazole Allergy Rash Verified 01/07/20 23:24 [From Sulfamethoxazole-Trimethoprim] trimethoprim Allergy Rash Verified 01/07/20 23:24 [From Sulfamethoxazole-Trimethoprim] venom-honey bee Allergy Anaphylaxis Verified 10/27/19 08:59 [bee venom (honey bee)] aspartame AdvReac Headache Verified 10/27/19 08:59 - Social History Does the pt smoke?: No Smoking Status: Never smoker Does the pt drink ETOH?: No Does the pt have substance abuse?: No - Immunizations Immunizations are current?: Yes - POLST Patient has POLST: No PD ED PE EXPANDED - General General: Alert, No acute distress, Disheveled, poorly kept (Generally poor hygiene) - Abdomen Abdomen: Normal Bowel sounds. No: Tender to palpation - Derm Derm: Other (Multiple areas of dry, scaling pruritic patches on the scalp with hair loss and hair shafts broken near the scalp) Results - Vitals Vitals: Vital Signs - 24 hr 03/20/20 18:04 Temperature 37.2 C Heart Rate 100 Respiratory 16 Rate Blood Pressure 115/65 O2 Saturation 98 Oxygen O2 Source Room air - Labs Labs: Laboratory Tests 03/20/20 18:45 Urine Color YELLOW Urine Clarity CLOUDY Urine pH 5.5 Ur Specific [place] >=1.030 H Urine Protein 30 H Urine Glucose (UA) NEGATIVE Urine Ketones NEGATIVE Urine Occult Blood TRACE-INTA Urine Nitrite POSITIVE H Urine Bilirubin NEGATIVE Urine Urobilinogen 0.2 (NORMAL) Ur Leukocyte Esterase SMALL H Urine RBC 0-5 Urine WBC 6-10 H Ur Squamous Epith Cells NONE SEEN Urine Bacteria Moderate H Ur Microscopic Review INDICATED Urine Culture Comments INDICATED Urine HCG, Qual NEGATIVE PD MEDICAL DECISION MAKING - ED course Complexity details: reviewed results, re-evaluated patient, considered differential, d/w patient ED course: 35-year-old female presents to the emergency department for evaluation of dry scaling scalp lesions with associated hair loss. This exam is most consistent with tinea capitis. I have prescribed Griseofulvin For 4 weeks. I have advised her to follow-up closely with her primary care provider regarding this. She also reported dysuria urgency and frequency and her UA is consistent with acute cystitis. No findings on exam to suggest a sending infection. Will start Keflex twice daily for 1 week. Emergent return precautions discussed for worsening symptoms Departure - Departure Disposition: 01 Home, Self Care Clinical Impression: Tinea capitis Acute cystitis Qualifiers: Hematuria presence: without hematuria Qualified Code(s): N30.00 - Acute cystitis without hematuria Condition: Stable Record reviewed to determine appropriate education?: Yes Instructions: ED Ringworm Scalp Ch, ED UTI Cystitis Female Prescriptions: Griseofulvin, Microsize [Griseofulvin] 500 mg PO DAILY #30 tablet Cephalexin [Keflex] 500 mg PO BID #14 capsule Comments: The scalp irritation and hair loss is due to a condition called tinea capitis. This is a ringworm or fungal infection of the scalp. Please take the prescribed medication daily for at least 4 weeks. I would like you to follow-up with your primary care provider at the end of that treatment. Sometimes additional treatment is necessary. You do have a urinary tract infection today. Please fill the prescription for the Keflex and take twice a day as prescribed. If at any point you develop fevers, have uncontrolled vomiting, back or kidney pain return to the ER for a second evaluation
[2020-03-20 19:09] LABS: BILIRUBIN,URINE NEGATIVE (NEGATIVE); GLUCOSE, URINE (UA) NEGATIVE (NEGATIVE); KETONES,URINE (UA) NEGATIVE (NEGATIVE); LEUKOCYTE ESTERASE, URINE SMALL (NEGATIVE); NITRITE,URINE POSITIVE (NEGATIVE); OCCULT BLOOD,URINE TRACE-INTA (NEGATIVE); PH,URINE 5.5 PH (5.0-7.5); PROTEIN,URINE 30 mg/dL (NEGATIVE); UROBILINOGEN,URINE 0.2 (NORMAL) E.U./dL (NORMAL)
[2020-03-20 19:18] LABS: CLARITY,URINE CLOUDY (CLEAR); HCG UR QUAL NEGATIVE
[2020-03-20 19:19] LABS: BACTERIA,URINE Moderate /HPF (None Seen); RBC,URINE 0-5 /HPF (0-5); SQUAMOUS EPITHELIAL CELL,UR NONE SEEN (<= Few)
[2020-03-20 19:40] VITALS: BP 105/68
== END 2020-03-20 19:38 | disposition home or self-care (01) ==
LOC: ED 17:53
DX: B35.0 Tinea barbae and tinea capitis (principal); N30.00 Acute cystitis without hematuria
CPT/HCPCS: 81001; 81003; 81025; 87086; 87181; 99283

== ENCOUNTER 2020-07-14 20:12 | Emergency (ER) | payer MEDICAID ==
[2020-07-14 20:36] LABS: BILIRUBIN,URINE NEGATIVE (NEGATIVE); GLUCOSE, URINE (UA) NEGATIVE (NEGATIVE); KETONES,URINE (UA) NEGATIVE (NEGATIVE); LEUKOCYTE ESTERASE, URINE TRACE (NEGATIVE); NITRITE,URINE NEGATIVE (NEGATIVE); OCCULT BLOOD,URINE NEGATIVE (NEGATIVE); PH,URINE 7.5 PH (5.0-7.5); PROTEIN,URINE NEGATIVE (NEGATIVE); UROBILINOGEN,URINE 0.2 (NORMAL) E.U./dL (NORMAL)
[2020-07-14 20:38] LABS: CLARITY,URINE CLOUDY (CLEAR)
--- NOTE | 2020-07-14 20:39 | ED Physician Documentation ---
PD HPI FEMALE - Stated complaint Stated Complaint: BACK PX, DARK URINE, ABD PX - Chief complaint Chief Complaint: UTI - History obtained from History obtained from: Patient - Additional information Additional information: For the better part of a month she has had dysuria, some pelvic pain and back pain and frequency and foul-smelling urine. She does not think she has had fevers but she feels just kind of generally ill. She has a history of hysterectomy and right oophorectomy for torsion. She also has persistent ringworm on the scalp. 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 : None HEENT: None Psych: None Musculoskeletal: None Derm: None - Past Surgical History Past Surgical History: Yes /TRAP SETTER: Hysterectomy - Present Medications Home Medications: Ambulatory Orders Medication Instructions Recorded Confirmed Griseofulvin, Microsize 2 tab PO DAILY #140 07/14/20 [Griseofulvin] Levofloxacin [Levaquin] 500 mg PO DAILY #9 07/14/20 - Allergies Allergies/Adverse Reactions: Allergies Allergy/AdvReac Type Severity Reaction Status Date / Time Latex, Natural Rubber Allergy Unknown Verified 07/14/20 20:35 sulfamethoxazole Allergy Rash Verified 07/14/20 20:35 [From Sulfamethoxazole-Trimethoprim] trimethoprim Allergy Rash Verified 07/14/20 20:35 [From Sulfamethoxazole-Trimethoprim] venom-honey bee Allergy Anaphylaxis Verified 07/14/20 20:35 [bee venom (honey bee)] aspartame AdvReac Headache Verified 07/14/20 20:35 - Social History Does the pt smoke?: No Smoking Status: Never smoker Does the pt drink ETOH?: No Does the pt have substance abuse?: No - Immunizations Immunizations are current?: Yes - POLST Patient has POLST: No PD ED PE NORMAL - Vitals Vital signs reviewed: Yes - General General: Alert and oriented X 3, No acute distress - Abdomen Abdomen: Normal bowel sounds, Soft, Non tender - Back Back: Other (Mild L flank TTP) - Derm Derm: Normal color, Warm and dry, Other (tinea capitis with postauricular adenopathy) - Neuro Neuro: Alert and oriented X 3, Normal speech Results - Vitals Vitals: Vital Signs - 24 hr 07/14/20 07/14/20 20:14 21:11 Temperature 37.0 C Heart Rate 93 90 Respiratory 16 16 Rate Blood Pressure 105/78 107/68 O2 Saturation 100 98 Oxygen O2 Source Room air - Labs Labs: Laboratory Tests 07/14/20 20:16 Urine Color YELLOW Urine Clarity CLOUDY Urine pH 7.5 Ur Specific [place] 1.015 Urine Protein NEGATIVE Urine Glucose (UA) NEGATIVE Urine Ketones NEGATIVE Urine Occult Blood NEGATIVE Urine Nitrite NEGATIVE Urine Bilirubin NEGATIVE Urine Urobilinogen 0.2 (NORMAL) Ur Leukocyte Esterase TRACE H Urine RBC None Seen Urine WBC 4-5 Ur Squamous Epith Cells MOD Squamous H Urine Bacteria Many H Ur Microscopic Review INDICATED Urine Culture Comments NOT INDICATED Departure - Departure Disposition: 01 Home, Self Care Clinical Impression: Tinea capitis, Pyelonephritis Condition: Good Record reviewed to determine appropriate education?: Yes Instructions: Pyelonephritis Dc Prescriptions: Griseofulvin, Microsize [Griseofulvin] 2 tab PO DAILY #140 Levofloxacin [Levaquin] 500 mg PO DAILY #9 Comments: Follow-up with your primary care physician, return for new or worsening symptoms. Discharge Date/Time: 07/14/20 21:11
[2020-07-14 20:46] LABS: BACTERIA,URINE Many /HPF (None Seen); RBC,URINE None Seen /HPF (0-5); SQUAMOUS EPITHELIAL CELL,UR MOD Squamous (<= Few)
[2020-07-14] MEDS ORDERED: levoFLOXacin 250 MG TABLET PO STA (21:01)
[2020-07-14 21:12] VITALS: BP 107/68
== END 2020-07-14 21:11 | disposition home or self-care (01) ==
LOC: ED 20:12
DX: N12 Tubulo-interstitial nephritis, not specified as acute or chronic (principal); B35.0 Tinea barbae and tinea capitis
CPT/HCPCS: 81001; 99283; A9270; 81003; 87086

== ENCOUNTER 2020-08-27 17:33 | Emergency (ER) | payer MEDICAID ==
--- OUTSIDE RECORDS SUMMARY | 2020-08-27 17:38 | EXTERNAL MEDICAL SUMMARY RPT | Continuity of Care Document ---
:1985 Demographics Phone Unavailable Preferred Language Unknown Marital Status Unknown Rastafari Affiliation Unknown Race Unknown Ethnic Group Unknown Author Organization [facility] Address [address] [phone] Phone Social History date description facility [phone]
--- OUTSIDE RECORDS SUMMARY | 2020-08-27 17:40 | EXTERNAL MEDICAL SUMMARY RPT | Continuity of Care Document ---
:1985 Demographics Phone Unavailable Preferred Language Unknown Marital Status Unknown Jewish Affiliation Unknown Race Unknown Ethnic Group Unknown Author Organization [facility] Address [address] [phone] Phone Social History date description facility [phone]
[2020-08-27 17:45] VITALS: BP 111/77
--- NOTE | 2020-08-27 18:50 | ED Physician Documentation ---
History of Present Illness - Stated complaint Stated Complaint: HEAD WOUND - Chief complaint Chief Complaint: Wound - Additonal information Additional information: 35-year-old female presents to the emergency department with a large ulceration on the top of her forehead near the hairline that she reports began as a tinea capitis infection. She also reports multiple smaller lesions through distributed throughout her hair. She has had about 4 weeks of griseofulvin tx, but it did nto fully eradicate the infection pt also has a smaller ingrown hair ner her pubis at the site where she recently shaved. 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 : None HEENT: None Psych: None Musculoskeletal: None Derm: None - Past Surgical History Past Surgical History: Yes /CASE FINISHING MACHINE 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: Hysterectomy, Oophrectomy - Present Medications Home Medications: Ambulatory Orders Medication Instructions Recorded Confirmed Griseofulvin, Microsize 500 mg PO DAILY #42 tablet 08/27/20 [Griseofulvin] Mupirocin 2% Oint [Bactroban 2% 1 applic TOP BID #22 gm 08/27/20 Oint] - Allergies Allergies/Adverse Reactions: Allergies Allergy/AdvReac Type Severity Reaction Status Date / Time Latex, Natural Rubber Allergy Unknown Verified 08/27/20 18:15 sulfamethoxazole Allergy Rash Verified 08/27/20 18:15 [From Sulfamethoxazole-Trimethoprim] trimethoprim Allergy Rash Verified 08/27/20 18:15 [From Sulfamethoxazole-Trimethoprim] venom-honey bee Allergy Anaphylaxis Verified 08/27/20 18:15 [bee venom (honey bee)] aspartame AdvReac Headache Verified 08/27/20 18:15 - Social History Does the pt smoke?: No Smoking Status: Never smoker Does the pt drink ETOH?: No Does the pt have substance abuse?: No - Immunizations Immunizations are current?: Yes - POLST Patient has POLST: No PD ED PE EXPANDED - General General: Alert, No acute distress - Derm Derm: Normal color, Warm and dry, Rash (Multiple small pinpoint shallow ulcerations scattered throughout the head with associated hair follicles broken midshaft.), Other (Large 1 cm ulceration mid superior forehead at the hairline without surrounding erythema or drainage.) Results - Vitals Vitals: Vital Signs - 24 hr 08/27/20 17:41 Temperature 36.7 C Heart Rate 91 Respiratory 16 Rate Blood Pressure 111/77 O2 Saturation 99 Oxygen O2 Source Room air PD MEDICAL DECISION MAKING - ED course Complexity details: reviewed results, re-evaluated patient, d/w patient ED course: 35-year-old female presents to the emergency department for evaluation of an ulceration on the top of her forehead at the site where previous tinea infection was. Unfortunately due to poor wound care a large ulceration has developed. However there is no surrounding signs of infection. I do recommend that she placed Bactroban on this 3 times a day as well as wash it with warm soap and water. She does have an extensive tinea infection in her scalp and I will prescribe Griseofulvin for that as well. Patient is advised to follow-up with her primary care provider for reevaluation. Departure - Departure Disposition: 01 Home, Self Care Clinical Impression: Tinea capitis Skin ulcer Qualifiers: Non-pressure ulcer stage: unspecified non-pressure ulcer stage Qualified Code(s): L98.499 - Non-pressure chronic ulcer of skin of other sites with unspecified severity Condition: Stable Record reviewed to determine appropriate education?: Yes Instructions: ED Ringworm Scalp Ch Follow-Up: ARJUN PERKINS MD [Primary Care Provider] - Prescriptions: Mupirocin 2% Oint [Bactroban 2% Oint] 1 applic TOP BID #22 gm Griseofulvin, Microsize [Griseofulvin] 500 mg PO DAILY #42 tablet Comments: You do have an extensive tinea infection in your scalp. I have prescribed the Griseofulvin To be taken every day for the next 6 weeks. It is very important that you schedule an appointment with your primary doctor for follow-up. The infection is not resolving or improving after 6 weeks different therapy should be considered. You do have a large ulceration on the top of your forehead. There is no surrounding infection therefore you do not need oral antibiotics. I would like you to wash this daily with warm soap and water, pat dry and apply the antibiotic ointment and a simple bandage. This ulceration will likely take 2 to 3 weeks to heal.
== END 2020-08-27 19:18 | disposition home or self-care (01) ==
LOC: ED 17:33
DX: B35.0 Tinea barbae and tinea capitis (principal); L98.499 Non-pressure chronic ulcer of skin of other sites with unspecified severity
CPT/HCPCS: 99282; 99283

== ENCOUNTER 2021-09-29 18:28 | Emergency (ER) | payer MEDICAID ==
[2021-09-29 18:45] VITALS: BP 125/90
[2021-09-29 19:05] LABS: BASOPHILS # (AUTO) 0.1 10^3/uL (0.0-0.1); BASOPHILS % (AUTO) 0.7 %; EOSINOPHILS # (AUTO) 0.1 10^3/uL (0.0-0.7); EOSINOPHILS % (AUTO) 1.5 %; HCT - HEMATOCRIT 35.3 % (37.0-47.0); HGB - HEMOGLOBIN 11.6 g/dL (12.0-16.0); LYMPHOCYTES # (AUTO) 2.4 10^3/uL (1.5-3.5); LYMPHOCYTES % (AUTO) 31.6 %; MEAN CORPUSCULAR HGB CONC 32.9 g/dL (32.0-36.0); MEAN CORPUSCULAR VOLUME 88.3 fL (81.0-99.0); MEAN PLATELET VOLUME 9.6 fL (7.9-10.8); MONOCYTES # (AUTO) 0.6 10^3/uL (0.0-1.0); MONOCYTES % (AUTO) 7.7 %; NEUTROPHILS # (AUTO) 4.4 10^3/uL (1.5-6.6); NEUTROPHILS % (AUTO) 58.2 %; PLT - PLATELET COUNT 253 10^3/uL (130-450); RED CELL DISTRIBUTION WIDTH 12.6 % (12.0-15.0); WHITE BLOOD COUNT 7.6 x10^3/uL (4.8-10.8)
[2021-09-29 19:20] LABS: MUDS CUTOFF CONCENTRATIONS CUTOFF CONC BELOW:
[2021-09-29 19:23] LABS: ACETAMINOPHEN < 10 ug/mL (10-30); ALBUMIN 4.1 g/dL (3.2-5.5); ALBUMIN/GLOBULIN RATIO 1.4 (1.0-2.2); ALKALINE PHOSPHATASE 54 IU/L (42-121); ALT ALANINE AMINOTRANSFERASE 20 IU/L (10-60); AST ASPARTATE AMINOTRANSFERASE 25 IU/L (10-42); BILIRUBIN,TOTAL 0.3 mg/dL (0.2-1.0); BUN - BLOOD UREA NITROGEN 8 mg/dL (6-20); CARBON DIOXIDE - CO2 25 mmol/L (21-32); CHLORIDE 104 mmol/L (101-111); CREATININE 0.7 mg/dL (0.4-1.0); ETOH - ETHANOL < 5.0 mg/dL; GFR - MDRD 96 (>89); GLUCOSE 99 mg/dL (70-100); LIPASE 23 U/L (22-51); POTASSIUM 3.6 mmol/L (3.5-5.0); SALICYLATE < 6.0 mg/dL; SODIUM 137 mmol/L (135-145)
[2021-09-29 19:24] LABS: BILIRUBIN,URINE NEGATIVE (NEGATIVE); GLUCOSE, URINE (UA) NEGATIVE (NEGATIVE); KETONES,URINE (UA) NEGATIVE (NEGATIVE); LEUKOCYTE ESTERASE, URINE NEGATIVE (NEGATIVE); NITRITE,URINE NEGATIVE (NEGATIVE); OCCULT BLOOD,URINE NEGATIVE (NEGATIVE); PROTEIN,URINE NEGATIVE (NEGATIVE); UROBILINOGEN,URINE 0.2 (NORMAL) E.U./dL (NORMAL)
[2021-09-29 19:27] LABS: CLARITY,URINE HAZY (CLEAR)
[2021-09-29 19:28] LABS: HCG UR QUAL NEGATIVE
[2021-09-29] MEDS ORDERED: BUPRENORPHINE 0.3 MG/ML VIAL IM ONE (19:28)
[2021-09-29 19:34] LABS: RBC,URINE 0-5 /HPF (0-5); WBC,URINE 0-3 /HPF (0-5)
[2021-09-29 19:35] LABS: BACTERIA,URINE Moderate /HPF (None Seen); MUCUS,URINE Moderate Strands; SQUAMOUS EPITHELIAL CELL,UR MANY Squamous (<= Few)
[2021-09-29 19:41] LABS: AMPHETAMINE SCREEN,URINE POSITIVE (NEGATIVE); BARBITURATE SCREEN,UR NEGATIVE (NEGATIVE); BENZODIAZEPINES SCREEN, URINE NEGATIVE (NEGATIVE); COCAINE SCREEN URINE POSITIVE (NEGATIVE); METHADONE SCREEN, URINE NEGATIVE (NEGATIVE); METHAMPHETAMINES SCREEN, URINE POSITIVE (NEGATIVE); OPIATE SCREEN, URINE NEGATIVE (NEGATIVE); OXYCODONE SCREEN, URINE NEGATIVE (NEGATIVE); PROPOXYPHENE SCREEN, URINE NEGATIVE (NEGATIVE); THC CANNABINOID SCREEN, URINE NEGATIVE (NEGATIVE); TRICYCLIC ANTIDEPRESSANT,URINE NEGATIVE (NEGATIVE)
[2021-09-29] MEDS ORDERED: LOPERAMIDE 2 MG CAPSULE PO STA (19:52)
[2021-09-29] MEDS ORDERED: cloNIDine 0.1 MG TABLET PO STA (19:52)
--- NOTE | 2021-09-29 19:53 | ED Physician Documentation ---
PD HPI MHE - Stated complaint Stated Complaint: MHE - Chief complaint Chief Complaint: MHE - History obtained from History obtained from: Patient - Additional information Additional information: 36-year-old woman presents accompanied by law enforcement for involuntary mental health evaluation. She has been using fentanyl and has a plan to go to detox tomorrow. Last use at 4 PM today. She states that the police were lying about her and have called her gravely mentally disabled and therefore brought her here. She says she is not suicidal. Prior to my evaluation the nurses asked me to order something for withdrawal. I ordered buprenorphine. The patient refused this saying she was not in severe withdrawal yet. Review of Systems Ten Systems: 10 systems reviewed and negative PD PAST MEDICAL HISTORY - Past Medical History Past Medical History: Yes Cardiovascular: None Respiratory: None Neuro: None Endocrine/Autoimmune: None GI: None TARIFF SUPERVISOR: Endometriosis : None HEENT: None Psych: None Musculoskeletal: None Derm: None - Past Surgical History Past Surgical History: Yes /TARIFF SUPERVISOR: Hysterectomy, Oophrectomy - Allergies Allergies/Adverse Reactions: Allergies Allergy/AdvReac Type Severity Reaction Status Date / Time Latex, Natural Rubber Allergy Unknown Verified 09/29/21 18:37 sulfamethoxazole Allergy Rash Verified 09/29/21 18:37 [From Sulfamethoxazole-Trimethoprim] trimethoprim Allergy Rash Verified 09/29/21 18:37 [From Sulfamethoxazole-Trimethoprim] venom-honey bee Allergy Anaphylaxis Verified 09/29/21 18:37 [bee venom (honey bee)] aspartame AdvReac Headache Verified 09/29/21 18:37 - Social History Does the pt smoke?: No Smoking Status: Never smoker Does the pt drink ETOH?: No Does the pt have substance abuse?: No - Immunizations Immunizations are current?: Yes - POLST Patient has POLST: No PD ED PE NORMAL - Vitals Vital signs reviewed: Yes - General General: Alert and oriented X 3, No acute distress - HEENT HEENT: PERRL, EOMI - Neck Neck: Supple, no meningeal sign, No bony TTP - Cardiac Cardiac: RRR, No murmur - Respiratory Respiratory: No respiratory distress, Clear bilaterally - Abdomen Abdomen: Normal bowel sounds, Soft, Non tender - Back Back: No CVA TTP, No spinal TTP - Derm Derm: Normal color, Warm and dry - Extremities Extremities: No edema, No calf tenderness / cord - Neuro Neuro: Alert and oriented X 3, Normal speech Results - Vitals Vitals: Vital Signs - 24 hr 09/29/21 09/29/21 09/29/21 18:38 19:14 20:37 Temperature 36.6 C Heart Rate 87 Respiratory 20 20 16 Rate Blood Pressure 125/90 H O2 Saturation 100 09/29/21 09/30/21 09/30/21 21:28 00:11 00:40 Temperature Heart Rate Respiratory 15 17 18 Rate Blood Pressure O2 Saturation 09/30/21 09/30/21 09/30/21 00:58 01:20 01:26 Temperature Heart Rate Respiratory 17 17 17 Rate Blood Pressure O2 Saturation 09/30/21 09/30/21 01:30 01:39 Temperature 36.4 C L Heart Rate 80 Respiratory 16 Rate Blood Pressure O2 Saturation 100 Oxygen O2 Source Room air - Labs Labs: Laboratory Tests 09/29/21 09/29/21 09/29/21 18:58 18:58 18:58 WBC 7.6 RBC 4.00 L Hgb 11.6 L Hct 35.3 L MCV 88.3 MCH 29.0 MCHC 32.9 RDW 12.6 Plt Count 253 MPV 9.6 Neut # (Auto) 4.4 Lymph # (Auto) 2.4 Gulf # (Auto) 0.6 Eos # (Auto) 0.1 Baso # (Auto) 0.1 Absolute Nucleated RBC 0.00 Nucleated RBC % 0.0 Sodium 137 Potassium 3.6 Chloride 104 Carbon Dioxide 25 Anion Gap 8.0 BUN 8 Creatinine 0.7 Estimated GFR (MDRD) 96 Glucose 99 Calcium 9.0 Total Bilirubin 0.3 AST 25 ALT 20 Alkaline Phosphatase 54 Total Protein 7.0 Albumin 4.1 Globulin 2.9 Albumin/Globulin Ratio 1.4 Lipase 23 TSH 2.21 Urine Color Urine Clarity Urine pH Ur Specific [place] Urine Protein Urine Glucose (UA) Urine Ketones Urine Occult Blood Urine Nitrite Urine Bilirubin Urine Urobilinogen Ur Leukocyte Esterase Urine RBC Urine WBC Ur Squamous Epith Cells Urine Bacteria Urine Mucus Ur Microscopic Review Urine Culture Comments Urine HCG, Qual Salicylates < 6.0 Urine Opiates Screen Ur Oxycodone Screen Urine Methadone Screen Ur Propoxyphene Screen Acetaminophen < 10 L Ur Barbiturates Screen Ur Tricyclics Screen Ur Phencyclidine Scrn Ur Amphetamine Screen U Methamphetamines Scrn U Benzodiazepines Scrn Urine Cocaine Screen U Cannabinoids Screen Ethyl Alcohol < 5.0 SARS-CoV-2 (PCR) 09/29/21 09/29/21 09/29/21 19:00 19:08 19:25 WBC RBC Hgb Hct MCV MCH MCHC RDW Plt Count MPV Neut # (Auto) Lymph # (Auto) Gulf # (Auto) Eos # (Auto) Baso # (Auto) Absolute Nucleated RBC Nucleated RBC % Sodium Potassium Chloride Carbon Dioxide Anion Gap BUN Creatinine Estimated GFR (MDRD) Glucose Calcium Total Bilirubin AST ALT Alkaline Phosphatase Total Protein Albumin Globulin Albumin/Globulin Ratio Lipase TSH Urine Color YELLOW Urine Clarity HAZY Urine pH 6.0 Ur Specific [place] >=1.030 H Urine Protein NEGATIVE Urine Glucose (UA) NEGATIVE Urine Ketones NEGATIVE Urine Occult Blood NEGATIVE Urine Nitrite NEGATIVE Urine Bilirubin NEGATIVE Urine Urobilinogen 0.2 (NORMAL) Ur Leukocyte Esterase NEGATIVE Urine RBC 0-5 Urine WBC 0-3 Ur Squamous Epith Cells MANY Squamous H Urine Bacteria Moderate H Urine Mucus Moderate Strands Ur Microscopic Review INDICATED Urine Culture Comments NOT INDICATED Urine HCG, Qual NEGATIVE Salicylates Urine Opiates Screen NEGATIVE Ur Oxycodone Screen NEGATIVE Urine Methadone Screen NEGATIVE Ur Propoxyphene Screen NEGATIVE Acetaminophen Ur Barbiturates Screen NEGATIVE Ur Tricyclics Screen NEGATIVE Ur Phencyclidine Scrn NEGATIVE Ur Amphetamine Screen POSITIVE H U Methamphetamines Scrn POSITIVE H U Benzodiazepines Scrn NEGATIVE Urine Cocaine Screen POSITIVE H U Cannabinoids Screen NEGATIVE Ethyl Alcohol SARS-CoV-2 (PCR) NOT DETECTED PD MEDICAL DECISION MAKING - ED course ED course: 36-year-old woman 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 I spoke with the DCR Maria A who relayed that because of multiple recent overdoses they are planning to do "Rubio's law." Pending DCR evaluation at shift change. Departure - Departure Disposition: 01 Home, Self Care Clinical Impression: Polysubstance abuse Condition: Stable Instructions: ED Drug Abuse General Comments: You were brought to the emergency department today due to concerns for your substance abuse. We would like you to stay in the emergency department tonight so that our social media strategist can help with arrangements for detox and And to help you with your addiction. However, you do not want to stay any further in the emergency department and we are not able to hold you here against your will. If you change your mind at any time and would like help, please return to the emergency department or call 911. Please follow through with the plan that we have discussed with pursuing detox treatment tomorrow. Discharge Date/Time: 09/30/21 01:45
--- NOTE | 2021-09-30 00:34 | ED Physician Documentation ---
ED Addendum - Addendum Addendum: 09/30/21 00:31 D/W DCR Maria A. Unable to reach one facility and other facility is full. Therefore, they are unable to continue to detain her. Maria A will discuss with the patient. If pt is insistent on leaving, we are not able to detain her. If pt leaves, DCR will continue to reach out to her and will detain her once they have a bed. 09/30/21 01:01 Patient is aware that she is not currently being detained as DCR is unable to find her a bed. She is wanting to go home. She has a plan to try and get into Detox tomorrow. She is not wanting to stay in the emergency department to await social work evaluation in the morning for further assistance. She is wanting to try and call her ex-boyfriend. I did offer her medications if she feels that she is withdrawing to make her more comfortable so she can stay here tonight. Patient is declining this. Discussed with her nurse Ami to allow the patient to have her phone so she can speak to her ex- boyfriend. 09/30/21 01:26 Patient called her ex-boyfriend. He is not willing to come pick her up from the emergency department. Patient became very upset. She then wanted to call a cab and was able to Arrange for a cab to pick her up. I again offered medications to help her with her withdrawal and for her comfort here but she is adamant that she does not want to be in the emergency department. She does not currently appear intoxicated.She is speaking clearly and walking with a steady gait. She is answering questions appropriately. She denies being suicidal or homicidal. DCR is not able to detain her under Rubio's law As no bed is available. Departure - Departure Disposition: 01 Home, Self Care Clinical Impression: Polysubstance abuse Condition: Stable Instructions: ED Drug Abuse General Comments: You were brought to the emergency department today due to concerns for your substance abuse. We would like you to stay in the emergency department tonight so that our social media editor can help with arrangements for detox and And to help you with your addiction. However, you do not want to stay any further in the emergency department and we are not able to hold you here against your will. If you change your mind at any time and would like help, please return to the emergency department or call 911. Please follow through with the plan that we have discussed with pursuing detox treatment tomorrow.
== END 2021-09-30 01:45 | disposition home or self-care (01) ==
LOC: ED 18:28
DX: Z02.89 Encounter for other administrative examinations (principal); F19.10 Other psychoactive substance abuse, uncomplicated
CPT/HCPCS: 36415; 80053; 80306; 80307; 80320; 80329; 81001; 81003; 81025; 83690; 84443; 85025; 87086; 99281; 99283

== ENCOUNTER 2022-03-24 08:00 | Outpatient (CLI) | payer MEDICAID ==
[2022-03-24 22:48] LABS: BACTERIAL VAGINOSIS DNA POSITIVE (NEGATIVE); CANDIDA GLABRATA DNA NEGATIVE (NEGATIVE); CANDIDA GROUP DNA POSITIVE (NEGATIVE); CANDIDA KRUSEI DNA NEGATIVE (NEGATIVE); TRICHOMONAS VAGINALIS DNA NEGATIVE (NEGATIVE)
== END 2022-03-24 23:59 | disposition home or self-care (01) ==
LOC: LAB.S 08:00
PROVIDERS: ATTEND Registered Nurse
DX: N30.00 Acute cystitis without hematuria (principal); R30.0 Dysuria; Z72.51 High risk heterosexual behavior
CPT/HCPCS: 81514; 87077; 87086; 87181

== ENCOUNTER 2022-06-28 08:00 | Outpatient (CLI) | payer MEDICAID | END 2022-06-28 23:59 | disposition home or self-care (01) | LOC: LAB 08:00 | PROVIDERS: ATTEND Registered Nurse | DX: N30.00 Acute cystitis without hematuria (principal) | CPT/HCPCS: 87086 ==

== ENCOUNTER 2023-01-14 12:06 | Outpatient (CLI) | payer MEDICAID | END 2023-01-14 23:59 | disposition short-term general hospital (02) | LOC: EMS 12:06 | DX: T40.411A Poisoning by fentanyl or fentanyl analogs, accidental (unintentional), initial encounter (principal) | CPT/HCPCS: A0425; A0427; A0999 ==